=== PATIENT | male | born 1930 | race Caucasian/White ===

== ENCOUNTER 2016-04-22 13:03 | Inpatient (IN) | payer MEDICARE ==
[~2016-04-22] VITALS: Ht 177.8 cm; Wt 68.8 kg
[2016-04-22 14:45] LABS: BASO % 0.3 % (0.0-1.0); EOS # 0.1 K/mm3 (0.0-0.50); LARGE UNSTAINED CELL # 0.3 K/mm3 (0.0-0.4); LARGE UNSTAINED CELL % 2.6 % (0.0-4.0); LYMPH % 10.4 % (24.0-44.0); MEAN CORPUSCULAR HGB CONC 34.4 g/dl (32.0-36.5); MEAN CORPUSCULAR VOLUME 92.9 fl (80.0-96.0); MONO # 0.7 K/mm3 (0.0-0.8); MONO % 6.8 % (0.0-5.0); NEUTROPHILS # 7.6 K/mm3 (1.8-7.7); NEUTROPHILS % 78.9 % (36.0-66.0); PLATELET COUNT, AUTOMATED 355 k/mm3 (150-450); RED CELL DISTRIBUTION WIDTH 12.9 % (11.5-14.5); WHITE BLOOD COUNT 9.6 K/mm3 (4.0-10.0)
[2016-04-22] MEDS ORDERED: CARB25TA PO (15:08)
[2016-04-22] MEDS ORDERED: TRAV04OPD OU (15:08)
[2016-04-22] MEDS ORDERED: LISI10TA4 PO (15:08)
[2016-04-22] MEDS ORDERED: SIMV20TA2 PO (15:08)
[2016-04-22 15:11] LABS: ALBUMIN 2.9 GM/DL (3.2-5.2); ALBUMIN/GLOBULIN RATIO 0.88 (1.00-1.93); ALKALINE PHOSPHATASE 68 U/L (45-117); ALT/SGPT 21 U/L (12-78); AMYLASE 20 U/L (25-115); ANION GAP 9 MEQ/L (8-16); AST/SGOT 25 U/L (15-37); BILIRUBIN,DIRECT 0.2 MG/DL (0.0-0.2); BILIRUBIN,TOTAL 0.8 MG/DL (0.2-1.0); BLOOD UREA NITROGEN 15 MG/DL (7-18); CALCIUM LEVEL 8.5 MG/DL (8.8-10.2); CARBON DIOXIDE LEVEL 29 MEQ/L (21-32); CHLORIDE LEVEL 97 MEQ/L (98-107); CREATININE FOR GFR 0.94 MG/DL (0.70-1.30); GLOMERULAR FILTRATION RATE > 60.0 (>35); GLUCOSE, FASTING 112 MG/DL (83-110); POTASSIUM SERUM 4.2 MEQ/L (3.5-5.1); SODIUM LEVEL 135 MEQ/L (136-145); TOTAL PROTEIN 6.2 GM/DL (6.4-8.2)
--- NOTE | 2016-04-22 15:29 | REP ---
CHEST, THREE VIEWS: HISTORY: Pneumonia COMPARISON: 12/21/2015 A parenchymal density is present in the medial right lower lobe consistent with an infiltrate that is slightly increased compared to the previous study. A calcified granuloma is present in the right lower lobe. Linear density is present in the left lower lobe consistent with atelectasis or scar. The heart is normal in size. The pulmonary vasculature is normal in appearance. Degenerative change is present in the thoracic spine and shoulders. IMPRESSION: 1. Right lower lobe infiltrate increased compared to the previous study. 2. Old granulomatous disease. 3. Left lower lobe atelectasis or scar. Signed by Umer Luciano MD 04/22/2016 03:32 P
[2016-04-22] MEDS: NS 1,000 ML IV SCH (16:11)
--- NOTE | 2016-04-22 16:55 | HPE ---
DATE OF ADMISSION: 04/22/2016 PRIMARY CARE PROVIDER: Dr. Harris NEUROLOGIST: Dr. Springer REASON FOR ADMISSION: Aspiration. HISTORY OF PRESENT ILLNESS: The patient is 85-year-old male, past medical history significant for Parkinson's disease, was seeing Dr. Springer today with his daughter. His daughter mentioned that the patient has been choking with thin liquids and solid food. Has been going on for the past few weeks, but has worsened recently. He has also been having a productive cough. The patient was recently treated for aspiration pneumonia. He is currently on Levaquin 750 [address] by mouth daily[address] Dr. Springer instructed the patient and daughter to present to the emergency room and be admitted for speech evaluation and a possible percutaneous endoscopic gastrostomy tube placement. The patient was evaluated in the emergency room, vitals were stable. No leukocytosis. Chest x-ray showed left lower lobe atelectasis or scar right lower lobe atelectasis or infiltrate increasing compared to previous study. Upon my exam the patient denies any chest pain or shortness of breath. However, he was complaining of a productive cough at baseline. Denied any fevers but complained of chills. No other acute symptoms. The patient was admitted under hospitalist service. REVIEW OF SYSTEMS: 12-point review of system was obtained, all of which was negative except for those mentioned above. PAST MEDICAL HISTORY: Positive for Parkinson's disease and aspiration pneumonia. PAST SURGICAL HISTORY: Brain tumor. Gamma knife surgery. HOME MEDICATIONS: Include - Levaquin 750 mg by mouth daily - Parkinson's medication unknown dose - Hypertension medication unknown dose ALLERGIES: No known drug allergies. SOCIAL HISTORY: The patient is does not smoke or drink alcohol. FAMILY HISTORY: Noncontributory. PHYSICAL EXAMINATION: Physical findings blood pressure 148/72, pulse 66, respiratory rate 18, temperature 98.3, pulse ox 90% on room air. HEENT: Pupils equal round reactive to light accommodation. NECK: Supple. No jugular venous distention. LUNGS: Clear bilateral. ABDOMEN: Soft, nontender, nondistended. EXTREMITIES: No clubbing, cyanosis or edema. LABORATORY FINDINGS: WBC 9.6, hemoglobin 12.6, hematocrit 36.6, platelet count 355, sodium 135, potassium 4.2, chloride 97, BUN 15, creatinine 0.94, glucose 112. IMAGING: Chest x-ray showed right lower lobe infiltrate increasing compared to previous studies, which was done December 21, 2015. CT abdomen and pelvis was done in emergency room final results pending. ASSESSMENT/PLAN: 1. Aspiration pneumonia. We will start the patient on meropenem. He was on the course of Levaquin at home. We will start the patient on the pureed diet to nectar thick liquid. Order cookie swallow evaluation. Continue IV normal saline at a rate of 70 mL an hour. 2. History of Parkinson's. We will continue home medications once it is verified through the pharmacy. 3. Deep vein thrombosis prophylaxis. Sequential compression devices (SCDs) while in bed.
[2016-04-22] MEDS ORDERED: E-Z-PAQUE 96% w/w SUSP 176GM BTL As Ordered ONE (17:01)
--- NOTE | 2016-04-22 17:35 | EDDOCDS ---
Physician Documentation [facility] Name: Hal Pa Age: 85 yrs Sex: Male : 1930 Arrival Date: 04/22/2016 Time: 13:03 Bed Radiology Private MD: Darrell Elizondo D Disposition: 04/22/16 15:27 Hospitalization ordered by Prince Rodriguez for Inpatient Admission. Preliminary diagnosis are Pneumonia due to other specified bacteria - aspiration, RML, RLL, Dehydration, Dysphagia - due to progressive Parkinson's. - Bed requested for 4 [place]. - Status is Inpatient Admission. jmb - Condition is Stable. - Problem is new. - Symptoms are unchanged. Historical: - Allergies: no known allergies; - Home Meds: 1. levofloxacin 750 mg Oral tab once daily 2. parkinson's med unknown 3. hypertension med unknown - PMHx: Parkinson's Disease; - PSHx: Brain tumor gamm knife sugery; - Social history: Smoking status: Patient states was never smoker of tobacco. No barriers to communication noted, The patient speaks fluent American, The patient lives with spouse. - Family history: Not pertinent. - : The pt / caregiver states he / she is not on anticoagulants. Home medication list is obtained from the patient. - Exposure Risk Screening:: None identified. Vital Signs: 04/22 13:05 BP 148 / 72; Pulse 66; Resp 18 S; Temp 98.3(O); Pulse Ox 98% on R/A; Weight 70.31 kg / dd6 155.01 lbs (R); Height 5 ft. 10 in. (177.80 cm) (R); 17:30 BP 140 / 63; Pulse 66; Resp 18; Temp 97.5(TE); Pulse Ox 97% on R/A; Pain 0/10; dem1 13:05 Body Mass Index 22.24 (70.31 kg, 177.80 cm) dd6 MDM: 14:26 IV Saline Lock ordered. ar2 14:26 Undress patient appropriately for examination ordered. ar2 14:26 NS 0.9% 1000 ml IV at bolus once ordered. ar2 14:27 Amylase Ordered. EDMS 14:27 Basic Metabolic Profile Ordered. EDMS 14:27 CBC with Diff Ordered. EDMS 14:27 Lipase Ordered. EDMS 14:27 Liver Profile Ordered. EDMS 14:27 Chest, 2 View (pa\E\lat) Ordered. EDMS 14:28 NOTHING BY MOUTH+DIET ordered. EDMS 14:28 CT ABD & PELVIS: No Contrast Ordered. EDMS 14:28 BED REQUEST+ADM ordered. EDMS 14:39 Financial registration complete. lg 14:53 CBC with Diff Reviewed. ar2 15:05 [facility] Payment Agreement was scanned into [employer] and attached to record. lg 15:16 Amylase Reviewed. ar2 15:16 Basic Metabolic Profile Reviewed. ar2 15:16 Lipase Reviewed. ar2 15:16 Liver Profile Reviewed. ar2 16:25 Admission / Observation Status ordered. EDMS 16:25 PUREED DIET ordered. EDMS 16:26 SPUTUM CULTURE AND GRAM STAIN Ordered. EDMS 16:39 Esophagram Barium Swallow Ordered. EDMS Administered Medications: 14:50 Drug: NS 0.9% 1000 ml [sodium chloride 0.9 % intravenous solution] Route: IV; Rate: kr3 bolus; Site: left forearm; Signatures: Dispatcher [employer] EDMS Berta Cage, Reg Reg lg Staci Roa,RN RN kr3 Darrell Gallagher PA-C PA-C ar2 Shira Díaz RN RN rs3 Ronald JinRN RN Bairon Barajas, RN RN sa The chart was reviewed and I authenticate all verbal orders and agree with the evaluation and treatment provided.Corrections: (The following items were deleted from the chart) 16:58 16:24 Cookie Swallow Mod.Ba Swallow ordered. EDMS EDMS Attachments: 15:05 [facility] Payment Agreement lg MTDD
--- NOTE | 2016-04-22 17:35 | EDDOCDS ---
Nurse's Notes [facility] Name: Hal Pa Age: 85 yrs Sex: Male : 1930 Arrival Date: 04/22/2016 Time: 13:03 Bed Radiology Private MD: Darrell Elizondo D Diagnosis: Pneumonia due to other specified bacteria-aspiration, RML, RLL;Dehydration;Dysphagia-due to progressive Parkinson's Presentation: 04/22 13:13 Presenting complaint: Daughter states patient was seen by Dr. Springer today follow up rs3 on Parkinson's. Was sent here for admission since patient is not eating /difficulty swallowing. The last date and time the patient was known to be well was was at an unknown time on an unknown date. No acute neurological deficit is noted. Pre-hospital glucose is not applicable to this patient. Adult Sepsis Screening: The patient does not have new or worsening altered mentation. Patient's respiratory rate is less than 22. Systolic blood pressure is greater than 100. Patient has a qSOFA score of 0- Negative Sepsis Screen. Suicide/Homicide risk assessment- the patient denies having any suicidal and/or homicidal ideations and does not present with any other emotional, behavioral or mental health complaints. Status: Patient is not a inpatient services director or dependent. Transition of care: patient was not received from another setting of care. 13:13 Acuity: ALEJO Level 3 rs3 13:13 Method Of Arrival: Wheelchair rs3 Triage Assessment: 13:19 The onset of the patients symptoms was at an unknown time. General: Appears in no rs3 apparent distress. Pain: Denies pain. Neurological: Level of Consciousness is awake, alert, Reports difficulty swallowing. Historical: - Allergies: no known allergies; - Home Meds: 1. levofloxacin 750 mg Oral tab once daily 2. parkinson's med unknown 3. hypertension med unknown - PMHx: Parkinson's Disease; - PSHx: Brain tumor gamm knife sugery; - Social history: Smoking status: Patient states was never smoker of tobacco. No barriers to communication noted, The patient speaks fluent Icelandic, The patient lives with spouse. - Family history: Not pertinent. - : The pt / caregiver states he / she is not on anticoagulants. Home medication list is obtained from the patient. - Exposure Risk Screening:: None identified. Screenin:34 Screening information is obtained from the patient. Fall risk: No risks identified. kr3 Abuse/DV Screen: The patient / caregiver reports he/she is: not in a situation that causes fear, pain or injury. Advance Directives: Currently, there is no health care proxy. There is no active DNR order. There is no living will. There is no Power of Stamp Machine Servicer. home support is adequate. 14:50 Assistance ADL's: requires no assistance with activities of daily living. Nutritional kr3 screening: No deficits noted. Assessment: 14:14 Reassessment: Patient appears in no apparent distress at this time. General: Behavior kr3 is cooperative. Pain: Denies pain. Neurological: Level of Consciousness is awake, alert. Respiratory: Respiratory effort is even, unlabored. GI: Reports not able to swallow food or fluids easily so has not been eating or drinking. Derm: Skin is normal. 15:21 General: Appears in no apparent distress, Behavior is appropriate for age, cooperative, jmb Patient laying on stretcher, appears comfortable. Family at bedside. NO voiced complaints at this time. . Neurological: Level of Consciousness is awake, alert, obeys commands. Respiratory: Airway is patent Respiratory effort is even, unlabored, Respiratory pattern is regular, symmetrical. 17:31 General: Patient ready for transfer to [address] [place], [place] [id number]. Returned from radiology.. [facility] Neurological: Level of Consciousness is awake, alert, obeys commands. Respiratory: Airway is patent Respiratory effort is even, unlabored, Respiratory pattern is regular, symmetrical. Vital Signs: 13:05 BP 148 / 72; Pulse 66; Resp 18 S; Temp 98.3(O); Pulse Ox 98% on R/A; Weight 70.31 kg dd6 (R); Height 5 ft. 10 in. (177.80 cm) (R); 17:30 BP 140 / 63; Pulse 66; Resp 18; Temp 97.5(TE); Pulse Ox 97% on R/A; Pain 0/10; dem1 13:05 Body Mass Index 22.24 (70.31 kg, 177.80 cm) dd6 Vitals: 13:05 Log In Time: April 22, 2016 at 13:03. dd6 17:32 Glucose Measurement D-stick deferred by provider. [facility] ED Course: 13:05 Patient visited by Kirk Mcgrath CHRISTIAN. dd6 13:05 Darrell Elizondo is Private Physician. dd6 13:05 Patient moved to Waiting dd6 13:06 Patient moved to Pre RCE dd6 13:17 Triage Initiated rs3 13:43 Patient moved to Triage 1 ms2 13:48 Darrell Gallagher PA-C is PHCP. ar2 13:48 Jalen Rhodes MD is Attending Physician. ar2 13:49 Patient moved to I3 / M3 ct3 13:57 Patient visited by Darrell Gallagher PA-C. ar2 14:15 The patient / caregiver is instructed regarding the plan of care and ED course. kr3 Accompanied by Family Member, Patient has correct armband on for positive identification. Placed in gown. Bed in low position. Call light in reach. Side rails up X 1. 14:34 Amylase Sent. kr3 14:34 Basic Metabolic Profile Sent. kr3 14:34 CBC with Diff Sent. kr3 14:34 Lipase Sent. kr3 14:34 Liver Profile Sent. kr3 14:34 Inserted saline lock: 20 gauge in left forearm and blood collected. The patient kr3 tolerated the procedure well. 14:50 Patient visited by Staci Roa RN. kr3 15:05 [facility] [place] Agreement was scanned into [employer] and attached to record. lg 15:22 Patient visited by Ronald Jin,PAIGE. jmb 15:26 Prince Rodriguez is Hospitalizing Provider. ar2 15:32 Chest, 2 View (pa\E\lat) Returned. EDMS 16:48 Patient moved to Radiology jmb 17:31 No procedures done that require assistance. jmb 17:33 Patient visited by Natalia Olivo. dem1 Administered Medications: 14:50 Drug: NS 0.9% 1000 ml [sodium chloride 0.9 % intravenous solution] Route: IV; Rate: kr3 bolus; Site: left forearm; Order Results: Lab Order: Amylase; SPEC'M 04/22/16 14:32 Test: AMYLASE; Value: 20; Range: 25-115; Abnormal: Below low normal; Units: U/L; Status: F Lab Order: Basic Metabolic Profile; SPEC'M 04/22/16 14:32 Test: GLUCOSE, FASTING; Value: 112; Range: 83-110; Abnormal: Above high normal; Units: MG/DL; Status: F Test: BLOOD UREA NITROGEN; Value: 15; Range: 7-18; Units: MG/DL; Status: F Test: CREATININE FOR GFR; Value: 0.94; Range: 0.70-1.30; Units: MG/DL; Status: F Test: GLOMERULAR FILTRATION RATE; Value: > 60.0; Range: >35; Status: F Test: SODIUM LEVEL; Value: 135; Range: 136-145; Abnormal: Below low normal; Units: MEQ/L; Status: F Test: POTASSIUM SERUM; Value: 4.2; Range: 3.5-5.1; Units: MEQ/L; Status: F Test: CHLORIDE LEVEL; Value: 97; Range: 98-107; Abnormal: Below low normal; Units: MEQ/L; Status: F Test: CARBON DIOXIDE LEVEL; Value: 29; Range: 21-32; Units: MEQ/L; Status: F Test: ANION GAP; Value: 9; Range: 8-16; Units: MEQ/L; Status: F Test: CALCIUM LEVEL; Value: 8.5; Range: 8.8-10.2; Abnormal: Below low normal; Units: MG/DL; Status: F Test Note: ; Units are mL/min/1.73 m2 Chronic Kidney Disease Staging per NKF: Stage I & II GFR >=60 Normal to Mildly Decreased Stage III GFR 30-59 Moderately Decreased Stage IV GFR 15-29 Severely Decreased Stage V GFR <15 Very Little GFR Left ESRD GFR <15 on SLUNK SKINNER Lab Order: CBC with Diff; SPEC'M 04/22/16 14:32 Test: WHITE BLOOD COUNT; Value: 9.6; Range: 4.0-10.0; Units: K/mm3; Status: F Test: RED BLOOD COUNT; Value: 3.94; Range: 4.30-6.10; Abnormal: Below low normal; Units: M/mm3; Status: F Test: HEMOGLOBIN; Value: 12.6; Range: 14.0-18.0; Abnormal: Below low normal; Units: g/dl; Status: F Test: HEMATOCRIT; Value: 36.6; Range: 42.0-52.0; Abnormal: Below low normal; Units: %; Status: F Test: MEAN CORPUSCULAR VOLUME; Value: 92.9; Range: 80.0-96.0; Units: fl; Status: F Test: MEAN CORPUSCULAR HEMOGLOBIN; Value: 32.0; Range: 27.0-33.0; Units: pg; Status: F Test: MEAN CORPUSCULAR HGB CONC; Value: 34.4; Range: 32.0-36.5; Units: g/dl; Status: F Test: RED CELL DISTRIBUTION WIDTH; Value: 12.9; Range: 11.5-14.5; Units: %; Status: F Test: PLATELET COUNT, AUTOMATED; Value: 355; Range: 150-450; Units: k/mm3; Status: F Test: NEUTROPHILS %; Value: 78.9; Range: 36.0-66.0; Abnormal: Above high normal; Units: %; Status: F Test: LYMPH %; Value: 10.4; Range: 24.0-44.0; Abnormal: Below low normal; Units: %; Status: F Test: MONO %; Value: 6.8; Range: 0.0-5.0; Abnormal: Above high normal; Units: %; Status: F Test: EOS %; Value: 1.0; Range: 0.0-3.0; Units: %; Status: F Test: BASO %; Value: 0.3; Range: 0.0-1.0; Units: %; Status: F Test: LARGE UNSTAINED CELL %; Value: 2.6; Range: 0.0-4.0; Units: %; Status: F Test: NEUTROPHILS #; Value: 7.6; Range: 1.8-7.7; Units: K/mm3; Status: F Test: LYMPH #; Value: 1.0; Range: 1.5-4.5; Abnormal: Below low normal; Units: K/mm3; Status: F Test: MONO #; Value: 0.7; Range: 0.0-0.8; Units: K/mm3; Status: F Test: EOS #; Value: 0.1; Range: 0.0-0.50; Units: K/mm3; Status: F Test: BASO #; Value: 0.0; Range: 0.0-0.2; Units: K/mm3; Status: F Test: LARGE UNSTAINED CELL #; Value: 0.3; Range: 0.0-0.4; Units: K/mm3; Status: F Lab Order: Lipase; SPEC'M 04/22/16 14:32 Test: LIPASE; Value: 65; Range: 73-393; Abnormal: Below low normal; Units: U/L; Status: F Lab Order: Liver Profile; SPEC'M 04/22/16 14:32 Test: AST/SGOT; Value: 25; Range: 15-37; Units: U/L; Status: F Test: ALT/SGPT; Value: 21; Range: 12-78; Units: U/L; Status: F Test: ALKALINE PHOSPHATASE; Value: 68; Range: 45-117; Units: U/L; Status: F Test: BILIRUBIN,TOTAL; Value: 0.8; Range: 0.2-1.0; Units: MG/DL; Status: F Test: BILIRUBIN,DIRECT; Value: 0.2; Range: 0.0-0.2; Units: MG/DL; Status: F Test: TOTAL PROTEIN; Value: 6.2; Range: 6.4-8.2; Abnormal: Below low normal; Units: GM/DL; Status: F Test: ALBUMIN; Value: 2.9; Range: 3.2-5.2; Abnormal: Below low normal; Units: GM/DL; Status: F Test: ALBUMIN/GLOBULIN RATIO; Value: 0.88; Range: 1.00-1.93; Abnormal: Below low normal; Status: F Radiology Order: Chest, 2 View (pa\E\lat) Test: Chest, 2 View (pa\E\lat) REASON FOR EXAMINATION: recent pneumonia; CHEST, THREE VIEWS:; ; HISTORY: Pneumonia; ; COMPARISON: 12/21/2015; ; A parenchymal density is present in the medial right lower lobe consistent with; an infiltrate that is slightly increased compared to the previous study. A; calcified granuloma is present in the right lower lobe. Linear density is; present in the left lower lobe consistent with atelectasis or scar. The heart is; normal in size. The pulmonary vasculature is normal in appearance. Degenerative; change is present in the thoracic spine and shoulders.; ; IMPRESSION:; ; 1. Right lower lobe infiltrate increased compared to the previous study.; ; 2. Old granulomatous disease.; ; 3. Left lower lobe atelectasis or scar.; ; ; Signed by; Umer Luciano MD 04/22/2016 03:32 P; Outcome: 14:35 CT Study completed. kr3 15:27 Decision to Hospitalize by Provider. ar2 17:31 Discharge Assessment: Patient awake, alert and oriented x 3. No cognitive and/or jmb functional deficits noted. Patient verbalized understanding of disposition instructions. Patient awake and alert. obeys commands, Oriented to person, place and time. Patient verbalized understanding of disposition instructions. Patient has no functional deficits. patient administered narcotics - no. The following High Risk Discharge criteria are identified: None. Admitted to Med/Surg accompanied by tech, via wheelchair, with chart. Condition: stable. Property :Personal belongings accompany Pt. 17:34 Patient left the ED. nereyda Signatures: Dispatcher [employer] EDMS Tony Moya,RN RN ms2 Berta Cage, Reg Reg lg Staci Roa,RN RN kr3 Darrell Gallagher, PA-C PA-C ar2 Kirk Mcgrath, GIANT TIRE REPAIRER GIANT TIRE REPAIRER dd6 Shira DíazRN RN rs3 Neisha Morales, GIANT TIRE REPAIRER GIANT TIRE REPAIRER ct3 Natalia Olivo dem1 Ronald JinRN PAIGE dawn MTDD
[2016-04-22 17:39] VITALS: BP 161/69
[2016-04-22 18:00] VITALS: BP_SYST 161
[2016-04-22] MEDS: MEROPENEM INJ 1 GM in D5W MINI-BAG PLUS 100 ML IV SCH (18:39)
--- NOTE | 2016-04-22 19:18 | REP ---
Esophagram: Single contrast study: History: Evaluate for aspiration. Swallowing difficulty. 1 minute 40 seconds of fluoroscopy time was utilized. Findings: The oral pharyngeal phase of barium swallow is recorded on frontal and lateral rapid sequence films. Repetitive laryngeal penetration was observed and there were 2 to 3 episodes of tracheal aspiration producing clearing of the throat. Barium is seen coursing down the trachea to the right mainstem bronchus. No evidence of laryngeal or hypopharyngeal mass lesion is seen. There are tertiary esophageal contractions. No esophageal mass lesion is seen. Impression: Repeated laryngeal penetration and several episodes of tracheal aspiration productive of mild coughing and throat clearing. Signed by Jordan Montgomery MD 04/23/2016 09:53 A
[2016-04-22] MEDS: metroNIDAZOLE 500 MG in APPROPRIATE DILUENT 1 EA IV SCH (20:17)
[2016-04-22 22:00] VITALS: BP 129/68
[2016-04-23] MEDS: MEROPENEM INJ 1 GM in D5W MINI-BAG PLUS 100 ML IV SCH ×3 (01:48→17:58)
[2016-04-23] MEDS: metroNIDAZOLE 500 MG in APPROPRIATE DILUENT 1 EA IV SCH ×2 (04:52→13:00)
[2016-04-23 06:00] VITALS: BP 153/68
[2016-04-23] MEDS: NS 1,000 ML IV SCH ×2 (06:29→21:35)
[2016-04-23 07:56] LABS: BASO % 0.3 % (0.0-1.0); EOS # 0.1 K/mm3 (0.0-0.50); EOS % 0.9 % (0.0-3.0); LARGE UNSTAINED CELL # 0.2 K/mm3 (0.0-0.4); LARGE UNSTAINED CELL % 2.5 % (0.0-4.0); LYMPH # 1.1 K/mm3 (1.5-4.5); LYMPH % 13.4 % (24.0-44.0); MEAN CORPUSCULAR HEMOGLOBIN 31.4 pg (27.0-33.0); MEAN CORPUSCULAR HGB CONC 33.5 g/dl (32.0-36.5); MEAN CORPUSCULAR VOLUME 93.8 fl (80.0-96.0); MONO # 0.6 K/mm3 (0.0-0.8); MONO % 7.3 % (0.0-5.0); NEUTROPHILS # 6.1 K/mm3 (1.8-7.7); NEUTROPHILS % 75.5 % (36.0-66.0); PLATELET COUNT, AUTOMATED 344 k/mm3 (150-450); WHITE BLOOD COUNT 8.1 K/mm3 (4.0-10.0)
[2016-04-23 08:23] LABS: ALBUMIN 2.6 GM/DL (3.2-5.2); ALBUMIN/GLOBULIN RATIO 0.84 (1.00-1.93); ALKALINE PHOSPHATASE 61 U/L (45-117); ALT/SGPT 21 U/L (12-78); ANION GAP 7 MEQ/L (8-16); AST/SGOT 25 U/L (15-37); BILIRUBIN,TOTAL 0.6 MG/DL (0.2-1.0); BLOOD UREA NITROGEN 13 MG/DL (7-18); CARBON DIOXIDE LEVEL 30 MEQ/L (21-32); CHLORIDE LEVEL 100 MEQ/L (98-107); CREATININE FOR GFR 0.78 MG/DL (0.70-1.30); GLOMERULAR FILTRATION RATE > 60.0 (>35); GLUCOSE, FASTING 112 MG/DL (83-110); MAGNESIUM LEVEL 2.1 MG/DL (1.8-2.4); PHOSPHORUS LEVEL 2.7 MG/DL (2.5-4.9); POTASSIUM SERUM 4.1 MEQ/L (3.5-5.1); SODIUM LEVEL 137 MEQ/L (136-145); TOTAL PROTEIN 5.7 GM/DL (6.4-8.2)
[2016-04-23 11:34] VITALS: BP 134/63
[2016-04-23 14:00] VITALS: BP 132/64
[2016-04-23] MEDS: LISINOPRIL 10 MG TAB PO SCH (15:19)
[2016-04-23] MEDS: SINEMET 25-100 MG TAB PO SCH ×2 (15:19→21:33)
--- NOTE | 2016-04-23 15:23 | IPNPDOC ---
Text Note Date of Service The patient was seen on 04/23/16 at 15:04. NOTE Subjective: Patient is a 85 year old male with a PMHx of Parkinson's disease and history of aspiration pneumonia who presented to the ED from Dr. Springer's office. Patient and his noted that he had aspirated on food while eating ( solids and liquids). he has recently been treated for aspiration pneumonia and has been started on Levaquin. Patient was seen and examined at the bedside. He notes that he is tolerating a pureed thick diet. Objective: Vitals (See below) General: Lying in bed no acute distress, comfortable, AAOx3 HEENT: NC, AT CVS: RRR, +S1S2 Lungs: Fair air entry b/l, -w/r/r Abdomen: Soft, ND, NT, +BSx4 Extremities: +PPx4, -edema, - calf tenderness Assessment and plan: 1. Aspiration pneumonia - coverage for gram negative and aerobes - likely 2/2 poor swallowing ability 2/2 Parkinson's disease - Presented with cough, recent outpatient treatment with Levaquin - CXR 04/22: R LL infiltrate - No leukocytosis, no fever - c/w IV fluids with NS at 70cc/hr - c/w Meropenem - Day #2 2. Parkinson's with Dysphagia - Esophogram reveals some aspiration, some clearing ability - Will get official swallow study on Monday - Will c/w nectar thick fluids and pureed diet - c/w Cinemet 3. HTN - BP well controlled - c/w Lisinopril with holding parameters 4. DLP - c/w simvastatin 5. DVT prophylaxis - c/w SCDs VS,Fishbone, I+O VS, Fishbone, I+O Laboratory Tests 04/23/16 07:39 Calcium Level 8.0 L, Phosphorus Level 2.7, Aspartate Amino Transf (AST/SGOT) 25 , Alanine Aminotransferase (ALT/SGPT) 21, Alkaline Phosphatase 61, Total Bilirubin 0.6, Total Protein 5.7 L, Albumin 2.6 L, Red Blood Count 3.89 L, Mean Corpuscular Volume 93.8, Mean Corpuscular Hemoglobin 31.4, Mean Corpuscular Hemoglobin Concent 33.5, Red Cell Distribution Width 13.0, Neutrophils (%) (Auto ) 75.5 H, Lymphocytes (%) (Auto) 13.4 L, Monocytes (%) (Auto) 7.3 H, Eosinophils (%) (Auto) 0.9, Basophils (%) (Auto) 0.3, Neutrophils # (Auto) 6.1, Lymphocytes # (Auto) 1.1 L, Monocytes # (Auto) 0.6, Eosinophils # (Auto) 0.1, Basophils # (Auto) 0.0 Vital Signs Date Time Temp Pulse Resp B/P Pulse Ox O2 Delivery O2 Flow Rate FiO2 04/23/16 14:00 98.7 58 19 132/64 99 Room Air I&O- Last 24 Hours up to 6 AM 04/23/16 06:00 Intake Total 360 ml Output Total 200 ml Balance 160 ml AUREA AGARWAL MD Apr 23, 2016 15:23
[2016-04-23] MEDS: SIMVASTATIN 20 MG TAB PO SCH (21:33)
[2016-04-23] MEDS: LATANOPROST 0.005% OPHTH SOLN 2.5 ML OU SCH (21:34)
--- NOTE | 2016-04-23 21:59 | REP ---
CT of the abdomen and pelvis without contrast 04/22/2016 Indication: Abdominal pain Comparison: CT pelvis only 09/19/2011 Findings: Cardiac silhouette is mild to moderately enlarged. There is minimal pericardial effusion of 7 mm maximal depth. There are patchy areas of consolidation most compatible with infiltrate within the right middle lobe and the posterior basilar segment right lower lobe. This could represent aspiration pneumonia, and less likely likely infiltrative mass. Moderate coronary artery calcifications. Liver is within normal limits. There are multiple calcified granulomata within the spleen. Pancreas is mildly atrophic. There has been a prior cholecystectomy. Adrenal glands are normal. There is a moderately atrophic left kidney with areas of cortical thinning/scarring. There is no hydronephrosis or obstructing ureteral calculus. There is a 16 mm cyst within the posterior lateral mid pole right kidney. Right kidney is also without hydronephrosis or obstructing ureteral calculus. The stomach and small bowel are within normal limits. Terminal ileum and appendix are unchanged without inflammation. Moderate atherosclerotic changes are noted in the aorta and iliac arteries Bladder is contracted. The prostate contains implants most compatible with prostate cancer. There is moderate diffuse retained colonic stool. There is no free air or ascites. Impression: 1. Mild to moderate cardiomegaly with small amount of pericardial effusion of 7 mm maximal depth 2. Patchy areas of consolidation within the right middle lobe and medial basilar segment right lower lobe. Differential diagnosis includes aspiration pneumonia, scarring, infiltrative mass. Recommend dedicated CT of the chest 3. Moderate atrophic changes within the left kidney.There is no hydronephrosis or obstructing ureteral calculi bilaterally 4. Moderate diffuse retained colonic stool 5. Prostatic seed implants consistent with history of prostate cancer. Prostate is not significantly enlarged Signed by Shaina Fernandez MD 04/23/2016 09:50 P
[2016-04-23 22:00] VITALS: BP 156/70
[2016-04-24] MEDS: MEROPENEM INJ 1 GM in D5W MINI-BAG PLUS 100 ML IV SCH ×3 (01:37→18:45)
[2016-04-24 05:53] LABS: BASO % 0.4 % (0.0-1.0); EOS # 0.2 K/mm3 (0.0-0.50); EOS % 2.4 % (0.0-3.0); LARGE UNSTAINED CELL # 0.1 K/mm3 (0.0-0.4); LARGE UNSTAINED CELL % 2.1 % (0.0-4.0); LYMPH % 13.7 % (24.0-44.0); MEAN CORPUSCULAR HEMOGLOBIN 32.3 pg (27.0-33.0); MEAN CORPUSCULAR HGB CONC 33.3 g/dl (32.0-36.5); MEAN CORPUSCULAR VOLUME 96.9 fl (80.0-96.0); MONO # 0.5 K/mm3 (0.0-0.8); MONO % 7.3 % (0.0-5.0); NEUTROPHILS # 4.8 K/mm3 (1.8-7.7); NEUTROPHILS % 74.1 % (36.0-66.0); PLATELET COUNT, AUTOMATED 329 k/mm3 (150-450); RED CELL DISTRIBUTION WIDTH 13.8 % (11.5-14.5); WHITE BLOOD COUNT 6.5 K/mm3 (4.0-10.0)
[2016-04-24 06:00] VITALS: BP 138/63
[2016-04-24 06:11] LABS: ALBUMIN 2.1 GM/DL (3.2-5.2); ALKALINE PHOSPHATASE 55 U/L (45-117); ALT/SGPT 8 U/L (12-78); ANION GAP 6 MEQ/L (8-16); AST/SGOT 22 U/L (15-37); BILIRUBIN,TOTAL 0.5 MG/DL (0.2-1.0); BLOOD UREA NITROGEN 11 MG/DL (7-18); CALCIUM LEVEL 7.7 MG/DL (8.8-10.2); CARBON DIOXIDE LEVEL 28 MEQ/L (21-32); CHLORIDE LEVEL 102 MEQ/L (98-107); CREATININE FOR GFR 0.67 MG/DL (0.70-1.30); GLOMERULAR FILTRATION RATE > 60.0 (>35); GLUCOSE, FASTING 97 MG/DL (83-110); MAGNESIUM LEVEL 1.9 MG/DL (1.8-2.4); POTASSIUM SERUM 3.9 MEQ/L (3.5-5.1); SODIUM LEVEL 136 MEQ/L (136-145); TOTAL PROTEIN 5.6 GM/DL (6.4-8.2)
[2016-04-24] MEDS ORDERED: PREVNAR 13 VACCINE SYRINGE (CPT CODE:90670) IM ONE (09:00)
[2016-04-24] MEDS: LISINOPRIL 10 MG TAB PO SCH (09:00)
[2016-04-24] MEDS: SINEMET 25-100 MG TAB PO SCH ×3 (09:03→20:27)
--- NOTE | 2016-04-24 13:24 | IPNPDOC ---
Text Note Date of Service The patient was seen on 04/24/16 at 13:21. NOTE Subjective: Patient is a 85 year old male with a PMHx of Parkinson's disease and history of aspiration pneumonia who presented to the ED from Dr. Springer's office. Patient and his noted that he had aspirated on food while eating ( solids and liquids). he has recently been treated for aspiration pneumonia and has been started on Levaquin. Patient was seen and examined at the bedside. He does not have any new problems today. Objective: Vitals (See below) General: Lying in bed no acute distress, comfortable, AAOx3 HEENT: NC, AT CVS: RRR, +S1S2 Lungs: Fair air entry b/l, -w/r/r Abdomen: Soft, ND, NT, +BSx4 Extremities: +PPx4, -edema, - calf tenderness Assessment and plan: 1. Aspiration pneumonia - coverage for gram negative and aerobes - likely 2/2 poor swallowing ability 2/2 Parkinson's disease - Presented with cough, recent outpatient treatment with Levaquin - CXR 04/22: R LL infiltrate - No leukocytosis, no fever - Will d/c IV fluids today - c/w Meropenem - Day #3 2. Parkinson's with Dysphagia - Esophagram reveals laryngeal penetration and several episodes of tracheal aspiration, productive of mild coughing and throat clearing - Will get official swallow study tomorrow 04/25 - c/w nectar thick fluids and pureed diet - c/w Cinemet 3. HTN - BP well controlled - c/w Lisinopril with holding parameters 4. DLP - c/w simvastatin 5. DVT prophylaxis - c/w SCDs VS,Fishbone, I+O VS, Fishbone, I+O Laboratory Tests 04/24/16 05:30 Calcium Level 7.7 L, Aspartate Amino Transf (AST/SGOT) 22, Alanine Aminotransferase (ALT/SGPT) 8 L, Alkaline Phosphatase 55, Total Bilirubin 0.5, Total Protein 5.6 L, Albumin 2.1 L, Red Blood Count 3.67 L, Mean Corpuscular Volume 96.9 H, Mean Corpuscular Hemoglobin 32.3, Mean Corpuscular Hemoglobin Concent 33.3, Red Cell Distribution Width 13.8, Neutrophils (%) (Auto) 74.1 H, Lymphocytes (%) (Auto) 13.7 L, Monocytes (%) (Auto) 7.3 H, Eosinophils (%) (Auto ) 2.4, Basophils (%) (Auto) 0.4, Neutrophils # (Auto) 4.8, Lymphocytes # (Auto) 1.0 L, Monocytes # (Auto) 0.5, Eosinophils # (Auto) 0.2, Basophils # (Auto) 0.0 Vital Signs Date Time Temp Pulse Resp B/P Pulse Ox O2 Delivery O2 Flow Rate FiO2 04/24/16 09:13 Room Air 04/24/16 09:00 107/59 04/24/16 06:00 97.7 61 18 97 I&O- Last 24 Hours up to 6 AM 04/24/16 06:00 Intake Total 3300 ml Output Total 200 ml Balance 3100 ml AUREA AGARWAL MD Apr 24, 2016 13:24
[2016-04-24 14:00] VITALS: BP 155/70
--- NOTE | 2016-04-24 18:35 | EDDOCDS ---
Physician Documentation [facility] Name: Hal Pa Age: 85 yrs Sex: Male : 1930 Arrival Date: 04/22/2016 Time: 13:03 Bed Radiology Private MD: Darrell Elizondo D Disposition: 04/22/16 15:27 Hospitalization ordered by Prince Rodriguez for Inpatient Admission. Preliminary diagnosis are Pneumonia due to other specified bacteria - aspiration, RML, RLL, Dehydration, Dysphagia - due to progressive Parkinson's. - Bed requested for 4 [place]. - Status is Inpatient Admission. jmb - Condition is Stable. - Problem is new. - Symptoms are unchanged. Historical: - Allergies: no known allergies; - Home Meds: 1. levofloxacin 750 mg Oral tab once daily 2. parkinson's med unknown 3. hypertension med unknown - PMHx: Parkinson's Disease; - PSHx: Brain tumor gamm knife sugery; - Social history: Smoking status: Patient states was never smoker of tobacco. No barriers to communication noted, The patient speaks fluent Guatemalan, The patient lives with spouse. - Family history: Not pertinent. - : The pt / caregiver states he / she is not on anticoagulants. Home medication list is obtained from the patient. - Exposure Risk Screening:: None identified. Vital Signs: 04/22 13:05 BP 148 / 72; Pulse 66; Resp 18 S; Temp 98.3(O); Pulse Ox 98% on R/A; Weight 70.31 kg / dd6 155.01 lbs (R); Height 5 ft. 10 in. (177.80 cm) (R); 17:30 BP 140 / 63; Pulse 66; Resp 18; Temp 97.5(TE); Pulse Ox 97% on R/A; Pain 0/10; dem1 13:05 Body Mass Index 22.24 (70.31 kg, 177.80 cm) dd6 MDM: 14:26 IV Saline Lock ordered. ar2 14:26 Undress patient appropriately for examination ordered. ar2 14:26 NS 0.9% 1000 ml IV at bolus once ordered. ar2 14:27 Amylase Ordered. EDMS 14:27 Basic Metabolic Profile Ordered. EDMS 14:27 CBC with Diff Ordered. EDMS 14:27 Lipase Ordered. EDMS 14:27 Liver Profile Ordered. EDMS 14:27 Chest, 2 View (pa\E\lat) Ordered. EDMS 14:28 NOTHING BY MOUTH+DIET ordered. EDMS 14:28 CT ABD & PELVIS: No Contrast Ordered. EDMS 14:28 BED REQUEST+ADM ordered. EDMS 14:39 Financial registration complete. lg 14:53 CBC with Diff Reviewed. ar2 15:05 [facility] Payment Agreement was scanned into [employer] and attached to record. lg 15:16 Amylase Reviewed. ar2 15:16 Basic Metabolic Profile Reviewed. ar2 15:16 Lipase Reviewed. ar2 15:16 Liver Profile Reviewed. ar2 16:25 Admission / Observation Status ordered. EDMS 16:25 PUREED DIET ordered. EDMS 16:26 SPUTUM CULTURE AND GRAM STAIN Ordered. EDMS 16:39 Esophagram Barium Swallow Ordered. EDMS 04/23 10:38 T-Sheet-- Draft Copy was scanned into [employer] and attached to record. gb 10:39 Radiology Report was scanned into [employer] and attached to record. gb Administered Medications: 04/22 14:50 Drug: NS 0.9% 1000 ml [sodium chloride 0.9 % intravenous solution] Route: IV; Rate: kr3 bolus; Site: left forearm; Signatures: Dispatcher [employer] EDMS Debbie Crockett, Reg Reg gb Berta Cage, Reg Reg lg Staci Roa,RN RN kr3 Darrell Gallagher PA-C PASofía ar2 Shira Díaz RN RN rs3 Ronald Jin RN RN jmb Andrews, Steven RN PAIGE sa The chart was reviewed and I authenticate all verbal orders and agree with the evaluation and treatment provided.Corrections: (The following items were deleted from the chart) 16:58 16:24 Cookie Swallow Mod.Ba Swallow ordered. EDMS EDMS Attachments: 15:05 [facility] Payment Agreement lg 04/23 10:38 T-Sheet-- Draft Copy gb Chart Complete MTDD
--- NOTE | 2016-04-24 18:35 | EDDOCDS ---
Nurse's Notes [facility] Name: Hal Pa Age: 85 yrs Sex: Male : 1930 Arrival Date: 04/22/2016 Time: 13:03 Bed Radiology Private MD: Darrell Elizondo D Diagnosis: Pneumonia due to other specified bacteria-aspiration, RML, RLL;Dehydration;Dysphagia-due to progressive Parkinson's Presentation: 04/22 13:13 Presenting complaint: Daughter states patient was seen by Dr. Springer today follow up rs3 on Parkinson's. Was sent here for admission since patient is not eating /difficulty swallowing. The last date and time the patient was known to be well was was at an unknown time on an unknown date. No acute neurological deficit is noted. Pre-hospital glucose is not applicable to this patient. Adult Sepsis Screening: The patient does not have new or worsening altered mentation. Patient's respiratory rate is less than 22. Systolic blood pressure is greater than 100. Patient has a qSOFA score of 0- Negative Sepsis Screen. Suicide/Homicide risk assessment- the patient denies having any suicidal and/or homicidal ideations and does not present with any other emotional, behavioral or mental health complaints. Status: Patient is not a visitor services specialist or dependent. Transition of care: patient was not received from another setting of care. 13:13 Acuity: ALEJO Level 3 rs3 13:13 Method Of Arrival: Wheelchair rs3 Triage Assessment: 13:19 The onset of the patients symptoms was at an unknown time. General: Appears in no rs3 apparent distress. Pain: Denies pain. Neurological: Level of Consciousness is awake, alert, Reports difficulty swallowing. Historical: - Allergies: no known allergies; - Home Meds: 1. levofloxacin 750 mg Oral tab once daily 2. parkinson's med unknown 3. hypertension med unknown - PMHx: Parkinson's Disease; - PSHx: Brain tumor gamm knife sugery; - Social history: Smoking status: Patient states was never smoker of tobacco. No barriers to communication noted, The patient speaks fluent Tajik, The patient lives with spouse. - Family history: Not pertinent. - : The pt / caregiver states he / she is not on anticoagulants. Home medication list is obtained from the patient. - Exposure Risk Screening:: None identified. Screenin:34 Screening information is obtained from the patient. Fall risk: No risks identified. kr3 Abuse/DV Screen: The patient / caregiver reports he/she is: not in a situation that causes fear, pain or injury. Advance Directives: Currently, there is no health care proxy. There is no active DNR order. There is no living will. There is no Power of Directory Carrier. home support is adequate. 14:50 Assistance ADL's: requires no assistance with activities of daily living. Nutritional kr3 screening: No deficits noted. Assessment: 14:14 Reassessment: Patient appears in no apparent distress at this time. General: Behavior kr3 is cooperative. Pain: Denies pain. Neurological: Level of Consciousness is awake, alert. Respiratory: Respiratory effort is even, unlabored. GI: Reports not able to swallow food or fluids easily so has not been eating or drinking. Derm: Skin is normal. 15:21 General: Appears in no apparent distress, Behavior is appropriate for age, cooperative, jmb Patient laying on stretcher, appears comfortable. Family at bedside. NO voiced complaints at this time. . Neurological: Level of Consciousness is awake, alert, obeys commands. Respiratory: Airway is patent Respiratory effort is even, unlabored, Respiratory pattern is regular, symmetrical. 17:31 General: Patient ready for transfer to [address] [place] [address]on. Returned from radiology.. [facility] Neurological: Level of Consciousness is awake, alert, obeys commands. Respiratory: Airway is patent Respiratory effort is even, unlabored, Respiratory pattern is regular, symmetrical. Vital Signs: 13:05 BP 148 / 72; Pulse 66; Resp 18 S; Temp 98.3(O); Pulse Ox 98% on R/A; Weight 70.31 kg dd6 (R); Height 5 ft. 10 in. (177.80 cm) (R); 17:30 BP 140 / 63; Pulse 66; Resp 18; Temp 97.5(TE); Pulse Ox 97% on R/A; Pain 0/10; dem1 13:05 Body Mass Index 22.24 (70.31 kg, 177.80 cm) dd6 Vitals: 13:05 Log In Time: April 22, 2016 at 13:03. dd6 17:32 Glucose Measurement D-stick deferred by provider. [facility] ED Course: 13:05 Patient visited by Kirk Mcgrath CHRISTIAN. dd6 13:05 Darrell Elizondo is Private Physician. dd6 13:05 Patient moved to Waiting dd6 13:06 Patient moved to Pre RCE dd6 13:17 Triage Initiated rs3 13:43 Patient moved to Triage 1 ms2 13:48 [facility]agher [facility]. ar2 13:48 Jalen Rhodes MD is Attending Physician. ar2 13:49 Patient moved to I3 / M3 ct3 13:57 Patient visited by Darrell Gallagher PA-C. ar2 14:15 The patient / caregiver is instructed regarding the plan of care and ED course. kr3 Accompanied by Family Member, Patient has correct armband on for positive identification. Placed in gown. Bed in low position. Call light in reach. Side rails up X 1. 14:34 Amylase Sent. kr3 14:34 Basic Metabolic Profile Sent. kr3 14:34 CBC with Diff Sent. kr3 14:34 Lipase Sent. kr3 14:34 Liver Profile Sent. kr3 14:34 Inserted saline lock: 20 gauge in left forearm and blood collected. The patient kr3 tolerated the procedure well. 14:50 Patient visited by Staci Roa,PAIGE. kr3 15:05 [facility] [place] Agreement was scanned into [employer] and attached to record. lg 15:22 Patient visited by Ronald Jin,PAIGE. jmb 15:26 Prince Rodriguez is Hospitalizing Provider. ar2 15:32 Chest, 2 View (pa\E\lat) Returned. EDMS 16:48 Patient moved to Radiology jmb 17:31 No procedures done that require assistance. jmb 17:33 Patient visited by Natalia Olivo. dem1 04/23 10:38 T-Sheet-- Draft Copy was scanned into [employer] and attached to record. gb 10:39 Radiology Report was scanned into [employer] and attached to record. gb Administered Medications: 04/22 14:50 Drug: NS 0.9% 1000 ml [sodium chloride 0.9 % intravenous solution] Route: IV; Rate: kr3 bolus; Site: left forearm; Order Results: Lab Order: Amylase; SPEC'M 04/22/16 14:32 Test: AMYLASE; Value: 20; Range: 25-115; Abnormal: Below low normal; Units: U/L; Status: F Lab Order: Basic Metabolic Profile; SPEC'M 04/22/16 14:32 Test: GLUCOSE, FASTING; Value: 112; Range: 83-110; Abnormal: Above high normal; Units: MG/DL; Status: F Test: BLOOD UREA NITROGEN; Value: 15; Range: 7-18; Units: MG/DL; Status: F Test: CREATININE FOR GFR; Value: 0.94; Range: 0.70-1.30; Units: MG/DL; Status: F Test: GLOMERULAR FILTRATION RATE; Value: > 60.0; Range: >35; Status: F Test: SODIUM LEVEL; Value: 135; Range: 136-145; Abnormal: Below low normal; Units: MEQ/L; Status: F Test: POTASSIUM SERUM; Value: 4.2; Range: 3.5-5.1; Units: MEQ/L; Status: F Test: CHLORIDE LEVEL; Value: 97; Range: 98-107; Abnormal: Below low normal; Units: MEQ/L; Status: F Test: CARBON DIOXIDE LEVEL; Value: 29; Range: 21-32; Units: MEQ/L; Status: F Test: ANION GAP; Value: 9; Range: 8-16; Units: MEQ/L; Status: F Test: CALCIUM LEVEL; Value: 8.5; Range: 8.8-10.2; Abnormal: Below low normal; Units: MG/DL; Status: F Test Note: ; Units are mL/min/1.73 m2 Chronic Kidney Disease Staging per NKF: Stage I & II GFR >=60 Normal to Mildly Decreased Stage III GFR 30-59 Moderately Decreased Stage IV GFR 15-29 Severely Decreased Stage V GFR <15 Very Little GFR Left ESRD GFR <15 on [employer] Lab Order: CBC with Diff; SPEC'M 04/22/16 14:32 Test: WHITE BLOOD COUNT; Value: 9.6; Range: 4.0-10.0; Units: K/mm3; Status: F Test: RED BLOOD COUNT; Value: 3.94; Range: 4.30-6.10; Abnormal: Below low normal; Units: M/mm3; Status: F Test: HEMOGLOBIN; Value: 12.6; Range: 14.0-18.0; Abnormal: Below low normal; Units: g/dl; Status: F Test: HEMATOCRIT; Value: 36.6; Range: 42.0-52.0; Abnormal: Below low normal; Units: %; Status: F Test: MEAN CORPUSCULAR VOLUME; Value: 92.9; Range: 80.0-96.0; Units: fl; Status: F Test: MEAN CORPUSCULAR HEMOGLOBIN; Value: 32.0; Range: 27.0-33.0; Units: pg; Status: F Test: MEAN CORPUSCULAR HGB CONC; Value: 34.4; Range: 32.0-36.5; Units: g/dl; Status: F Test: RED CELL DISTRIBUTION WIDTH; Value: 12.9; Range: 11.5-14.5; Units: %; Status: F Test: PLATELET COUNT, AUTOMATED; Value: 355; Range: 150-450; Units: k/mm3; Status: F Test: NEUTROPHILS %; Value: 78.9; Range: 36.0-66.0; Abnormal: Above high normal; Units: %; Status: F Test: LYMPH %; Value: 10.4; Range: 24.0-44.0; Abnormal: Below low normal; Units: %; Status: F Test: MONO %; Value: 6.8; Range: 0.0-5.0; Abnormal: Above high normal; Units: %; Status: F Test: EOS %; Value: 1.0; Range: 0.0-3.0; Units: %; Status: F Test: BASO %; Value: 0.3; Range: 0.0-1.0; Units: %; Status: F Test: LARGE UNSTAINED CELL %; Value: 2.6; Range: 0.0-4.0; Units: %; Status: F Test: NEUTROPHILS #; Value: 7.6; Range: 1.8-7.7; Units: K/mm3; Status: F Test: LYMPH #; Value: 1.0; Range: 1.5-4.5; Abnormal: Below low normal; Units: K/mm3; Status: F Test: MONO #; Value: 0.7; Range: 0.0-0.8; Units: K/mm3; Status: F Test: EOS #; Value: 0.1; Range: 0.0-0.50; Units: K/mm3; Status: F Test: BASO #; Value: 0.0; Range: 0.0-0.2; Units: K/mm3; Status: F Test: LARGE UNSTAINED CELL #; Value: 0.3; Range: 0.0-0.4; Units: K/mm3; Status: F Lab Order: Lipase; SPEC'M 04/22/16 14:32 Test: LIPASE; Value: 65; Range: 73-393; Abnormal: Below low normal; Units: U/L; Status: F Lab Order: Liver Profile; SPEC'M 04/22/16 14:32 Test: AST/SGOT; Value: 25; Range: 15-37; Units: U/L; Status: F Test: ALT/SGPT; Value: 21; Range: 12-78; Units: U/L; Status: F Test: ALKALINE PHOSPHATASE; Value: 68; Range: 45-117; Units: U/L; Status: F Test: BILIRUBIN,TOTAL; Value: 0.8; Range: 0.2-1.0; Units: MG/DL; Status: F Test: BILIRUBIN,DIRECT; Value: 0.2; Range: 0.0-0.2; Units: MG/DL; Status: F Test: TOTAL PROTEIN; Value: 6.2; Range: 6.4-8.2; Abnormal: Below low normal; Units: GM/DL; Status: F Test: ALBUMIN; Value: 2.9; Range: 3.2-5.2; Abnormal: Below low normal; Units: GM/DL; Status: F Test: ALBUMIN/GLOBULIN RATIO; Value: 0.88; Range: 1.00-1.93; Abnormal: Below low normal; Status: F Radiology Order: Chest, 2 View (pa\E\lat) Test: Chest, 2 View (pa\E\lat) REASON FOR EXAMINATION: recent pneumonia; CHEST, THREE VIEWS:; ; HISTORY: Pneumonia; ; COMPARISON: 12/21/2015; ; A parenchymal density is present in the medial right lower lobe consistent with; an infiltrate that is slightly increased compared to the previous study. A; calcified granuloma is present in the right lower lobe. Linear density is; present in the left lower lobe consistent with atelectasis or scar. The heart is; normal in size. The pulmonary vasculature is normal in appearance. Degenerative; change is present in the thoracic spine and shoulders.; ; IMPRESSION:; ; 1. Right lower lobe infiltrate increased compared to the previous study.; ; 2. Old granulomatous disease.; ; 3. Left lower lobe atelectasis or scar.; ; ; Signed by; Umer Luciano MD 04/22/2016 03:32 P; Outcome: 14:35 CT Study completed. kr3 15:27 Decision to Hospitalize by Provider. ar2 17:31 Discharge Assessment: Patient awake, alert and oriented x 3. No cognitive and/or jmb functional deficits noted. Patient verbalized understanding of disposition instructions. Patient awake and alert. obeys commands, Oriented to person, place and time. Patient verbalized understanding of disposition instructions. Patient has no functional deficits. patient administered narcotics - no. The following High Risk Discharge criteria are identified: None. Admitted to Med/Surg accompanied by tech, via wheelchair, with chart. Condition: stable. Property :Personal belongings accompany Pt. 17:34 Patient left the ED. nereyda Signatures: Dispatcher [employer] EDMS Tony Moya,RN RN ms2 Debbie rCockett, Reg Reg gb Berta Cage, Reg Reg lg Staci Roa,RN RN kr3 Darrell Gallagher, PA-Neno PA-C ar2 Kirk Mcgrath, TECHNICAL SUPPORT ASSISTANT TECHNICAL SUPPORT ASSISTANT dd6 Shira Díaz,RN RN rs3 Neisha Morales, TECHNICAL SUPPORT ASSISTANT TECHNICAL SUPPORT ASSISTANT ct3 Natalia Olivo dem1 Ronald Jin,RN PAIGE dawn Chart Complete MTDD
--- NOTE | 2016-04-24 18:35 | EDDOCDS ---
Physician Documentation [facility] Name: Hal Pa Age: 85 yrs Sex: Male : 1930 Arrival Date: 04/22/2016 Time: 13:03 Bed Radiology Private MD: Darrell Elizondo D Disposition: 04/22/16 15:27 Hospitalization ordered by Prince Rodriguez for Inpatient Admission. Preliminary diagnosis are Pneumonia due to other specified bacteria - aspiration, RML, RLL, Dehydration, Dysphagia - due to progressive Parkinson's. - Bed requested for 4 [place]. - Status is Inpatient Admission. jmb - Condition is Stable. - Problem is new. - Symptoms are unchanged. Historical: - Allergies: no known allergies; - Home Meds: 1. levofloxacin 750 mg Oral tab once daily 2. parkinson's med unknown 3. hypertension med unknown - PMHx: Parkinson's Disease; - PSHx: Brain tumor gamm knife sugery; - Social history: Smoking status: Patient states was never smoker of tobacco. No barriers to communication noted, The patient speaks fluent Somali, The patient lives with spouse. - Family history: Not pertinent. - : The pt / caregiver states he / she is not on anticoagulants. Home medication list is obtained from the patient. - Exposure Risk Screening:: None identified. Vital Signs: 04/22 13:05 BP 148 / 72; Pulse 66; Resp 18 S; Temp 98.3(O); Pulse Ox 98% on R/A; Weight 70.31 kg / dd6 155.01 lbs (R); Height 5 ft. 10 in. (177.80 cm) (R); 17:30 BP 140 / 63; Pulse 66; Resp 18; Temp 97.5(TE); Pulse Ox 97% on R/A; Pain 0/10; dem1 13:05 Body Mass Index 22.24 (70.31 kg, 177.80 cm) dd6 MDM: 14:26 IV Saline Lock ordered. ar2 14:26 Undress patient appropriately for examination ordered. ar2 14:26 NS 0.9% 1000 ml IV at bolus once ordered. ar2 14:27 Amylase Ordered. EDMS 14:27 Basic Metabolic Profile Ordered. EDMS 14:27 CBC with Diff Ordered. EDMS 14:27 Lipase Ordered. EDMS 14:27 Liver Profile Ordered. EDMS 14:27 Chest, 2 View (pa\E\lat) Ordered. EDMS 14:28 NOTHING BY MOUTH+DIET ordered. EDMS 14:28 CT ABD & PELVIS: No Contrast Ordered. EDMS 14:28 BED REQUEST+ADM ordered. EDMS 14:39 Financial registration complete. lg 14:53 CBC with Diff Reviewed. ar2 15:05 [facility] Payment Agreement was scanned into [employer] and attached to record. lg 15:16 Amylase Reviewed. ar2 15:16 Basic Metabolic Profile Reviewed. ar2 15:16 Lipase Reviewed. ar2 15:16 Liver Profile Reviewed. ar2 16:25 Admission / Observation Status ordered. EDMS 16:25 PUREED DIET ordered. EDMS 16:26 SPUTUM CULTURE AND GRAM STAIN Ordered. EDMS 16:39 Esophagram Barium Swallow Ordered. EDMS 04/23 10:38 T-Sheet-- Draft Copy was scanned into [employer] and attached to record. gb 10:39 Radiology Report was scanned into [employer] and attached to record. gb Administered Medications: 04/22 14:50 Drug: NS 0.9% 1000 ml [sodium chloride 0.9 % intravenous solution] Route: IV; Rate: kr3 bolus; Site: left forearm; Signatures: Dispatcher [employer] EDMS Debbie Crockett, Reg Reg gb Berta Cage, Reg Reg lg Staci Roa,RN RN kr3 Darrell Gallagher PA-C PASofía ar2 Shira Díaz RN RN rs3 Ronald Jin RN RN jmb Andrews, Steven RN PAIGE sa The chart was reviewed and I authenticate all verbal orders and agree with the evaluation and treatment provided.Corrections: (The following items were deleted from the chart) 16:58 16:24 Cookie Swallow Mod.Ba Swallow ordered. EDMS EDMS Attachments: 15:05 [facility] Payment Agreement lg 04/23 10:38 T-Sheet-- Draft Copy gb Chart Complete MTDD
[2016-04-24] MEDS: LATANOPROST 0.005% OPHTH SOLN 2.5 ML OU SCH (20:28)
[2016-04-24] MEDS: SIMVASTATIN 20 MG TAB PO SCH (20:28)
[2016-04-24 22:00] VITALS: BP 160/70
[2016-04-25] MEDS: MEROPENEM INJ 1 GM in D5W MINI-BAG PLUS 100 ML IV SCH ×3 (01:31→17:56)
[2016-04-25 06:00] VITALS: BP 123/65
[2016-04-25 06:17] LABS: BASO % 0.2 % (0.0-1.0); EOS # 0.2 K/mm3 (0.0-0.50); EOS % 3.8 % (0.0-3.0); LARGE UNSTAINED CELL # 0.2 K/mm3 (0.0-0.4); LARGE UNSTAINED CELL % 2.6 % (0.0-4.0); LYMPH % 16.1 % (24.0-44.0); MEAN CORPUSCULAR HEMOGLOBIN 31.2 pg (27.0-33.0); MEAN CORPUSCULAR HGB CONC 33.4 g/dl (32.0-36.5); MEAN CORPUSCULAR VOLUME 93.3 fl (80.0-96.0); MONO # 0.4 K/mm3 (0.0-0.8); MONO % 6.2 % (0.0-5.0); NEUTROPHILS # 4.3 K/mm3 (1.8-7.7); NEUTROPHILS % 71.1 % (36.0-66.0); PLATELET COUNT, AUTOMATED 365 k/mm3 (150-450); RED CELL DISTRIBUTION WIDTH 12.9 % (11.5-14.5); WHITE BLOOD COUNT 6.1 K/mm3 (4.0-10.0)
[2016-04-25 06:56] LABS: ALBUMIN 2.3 GM/DL (3.2-5.2); ALBUMIN/GLOBULIN RATIO 0.62 (1.00-1.93); ALKALINE PHOSPHATASE 53 U/L (45-117); ALT/SGPT 13 U/L (12-78); ANION GAP 7 MEQ/L (8-16); AST/SGOT 27 U/L (15-37); BILIRUBIN,TOTAL 0.6 MG/DL (0.2-1.0); BLOOD UREA NITROGEN 8 MG/DL (7-18); CALCIUM LEVEL 8.2 MG/DL (8.8-10.2); CARBON DIOXIDE LEVEL 28 MEQ/L (21-32); CHLORIDE LEVEL 101 MEQ/L (98-107); CREATININE FOR GFR 0.66 MG/DL (0.70-1.30); GLOMERULAR FILTRATION RATE > 60.0 (>35); GLUCOSE, FASTING 89 MG/DL (83-110); MAGNESIUM LEVEL 1.9 MG/DL (1.8-2.4); POTASSIUM SERUM 4.1 MEQ/L (3.5-5.1); SODIUM LEVEL 136 MEQ/L (136-145)
[2016-04-25] MEDS: HEPARIN SOD (PORCINE) 5000 UNITS/ML VIAL SQ SCH ×2 (09:00→21:16)
[2016-04-25] MEDS: SINEMET 25-100 MG TAB PO SCH ×3 (09:55→21:15)
[2016-04-25] MEDS: LISINOPRIL 10 MG TAB PO SCH (09:58)
--- NOTE | 2016-04-25 12:42 | IPN ---
DATE: 04/25/2016 SUBJECTIVE: This is an 85-year-old male who is seen and examined at the bedside. Overnight, no reported acute events. This morning states that he feels fine, wants to know when he can go down for the testing for his swallow. Reportedly was eating a pureed diet this morning without any coughing spells. No chest pain, shortness of breath, nausea, vomiting. Had two bowel movements this morning, reported was formed. OBJECTIVE: VITAL SIGNS: Blood pressure 123/65, heart rate 67, respiration rate 18, pulse oximetry 98% on room air. Temperature 98.1. Intake and output 1950 and 200. He had three voids and two bowel movements documented. GENERAL: The patient is sitting in bed comfortable. No acute distress. He is awake, alert, and oriented times three. Pleasant, cooperative. Appears stated age. HEENT: Normocephalic, atraumatic. Moist oral mucosa. NECK: Supple. Trachea midline. No jugular venous distention (JVD). CHEST: Symmetric chest rise. No accessory muscle use. Breath sounds were diminished in the lung bases. No accessory muscle use. Positive E to A in the right lung base. HEART: Regular rate and rhythm. S1, S2 present. ABDOMEN: Soft, nontender, nondistended. Bowel sounds present. No guarding. No rebound. EXTREMITIES: No pedal edema. Pedal pulses present bilaterally. LABORATORY DATA: WBC 6.1, hemoglobin 11.8, hematocrit 35.2, platelets 365. Neutrophils 71.1, sodium 136, potassium 4.1, chloride 101, carbon dioxide 28, BUN 8, creatinine 0.66, glucose 89, magnesium 1.9, total bilirubin 0.6, AST 27, ALT 13, alkaline phosphatase 53. Chest x-ray on admission showed right lower lobe infiltrate increased, granulomatous disease, left lower lobe atelectasis. CT of the abdomen and pelvis showed mild to moderate cardiomegaly with small amount of pericardial effusion, patchy areas of consolidation within the right middle lobe and lower lobe. Moderate atrophic changes in the left kidney without hydronephrosis, moderate diffuse retained colonic stool. Esophageal gram, barium swallow showed repeated laryngeal penetration and severe episodes of tracheal aspiration productive of mild coughing and throat clearing. IMPRESSION/PLAN: Mr. Pa is an 85-year-old male with past medical history of Parkinson's disease, recurrent aspiration pneumonia, who was sent in from neurology office for further evaluation of his swallow study. 1. Aspiration pneumonia, secondary to progression of swallowing difficulty and Parkinson's disease. Currently on day 4 of meropenem. Appears to be tolerating antibiotic well. He has a cookie swallow study pending today and also speech pathology pending. It is possible that should he fail his cookie swallow, he will likely require percutaneous endoscopic gastrostomy (PEG) tube placement. 2. Parkinson's disease with dysphagia. Plan for a cookie swallow, as mentioned above. Continue Sinemet 0.5 mg three times a day. 3. Hypertension. Continue home dose of Lisinopril 10 mg by mouth daily. 4. Hyperlipidemia. Continue simvastatin 20 mg by mouth at night. 5. Deep vein thrombosis (DVT) prophylaxis. Sequential compression device (SCD) and TEDs. Have started heparin. My preceptor for this patient encounter was Dr. Houston. The preceptor was physically present in the building during the encounter and was fully available. As needed, all aspects of the patient interview, examination, medical decision making process, and medical care plan development were reviewed and approved by the preceptor. The preceptor is aware and concurs with the plan as stated in the body of this note and will attest to such by his/her cosignature. STACI
[2016-04-25 14:00] VITALS: BP 131/58
[2016-04-25] MEDS: SIMVASTATIN 20 MG TAB PO SCH (21:15)
[2016-04-25] MEDS: LATANOPROST 0.005% OPHTH SOLN 2.5 ML OU SCH (21:16)
[2016-04-25 22:00] VITALS: BP 134/64
[2016-04-26] MEDS: MEROPENEM INJ 1 GM in D5W MINI-BAG PLUS 100 ML IV SCH ×3 (01:08→18:15)
[2016-04-26] MEDS: ACETAMINOPHEN TAB 650MG DOSE (2X325MG) PO PRN ×2 (02:48→21:04)
[2016-04-26 06:00] VITALS: BP 134/63
[2016-04-26 06:33] LABS: BASO % 0.4 % (0.0-1.0); EOS # 0.2 K/mm3 (0.0-0.50); EOS % 3.8 % (0.0-3.0); LARGE UNSTAINED CELL # 0.2 K/mm3 (0.0-0.4); LARGE UNSTAINED CELL % 3.6 % (0.0-4.0); LYMPH # 1.1 K/mm3 (1.5-4.5); LYMPH % 21.6 % (24.0-44.0); MEAN CORPUSCULAR HEMOGLOBIN 31.1 pg (27.0-33.0); MEAN CORPUSCULAR HGB CONC 33.5 g/dl (32.0-36.5); MEAN CORPUSCULAR VOLUME 92.8 fl (80.0-96.0); MONO # 0.3 K/mm3 (0.0-0.8); MONO % 5.2 % (0.0-5.0); NEUTROPHILS # 3.2 K/mm3 (1.8-7.7); NEUTROPHILS % 65.3 % (36.0-66.0); PLATELET COUNT, AUTOMATED 383 k/mm3 (150-450); RED CELL DISTRIBUTION WIDTH 12.8 % (11.5-14.5)
[2016-04-26 06:51] LABS: ALBUMIN 2.5 GM/DL (3.2-5.2); ALBUMIN/GLOBULIN RATIO 0.68 (1.00-1.93); ALKALINE PHOSPHATASE 57 U/L (45-117); ALT/SGPT 14 U/L (12-78); ANION GAP 7 MEQ/L (8-16); AST/SGOT 41 U/L (15-37); BILIRUBIN,TOTAL 0.4 MG/DL (0.2-1.0); BLOOD UREA NITROGEN 10 MG/DL (7-18); CALCIUM LEVEL 8.5 MG/DL (8.8-10.2); CARBON DIOXIDE LEVEL 30 MEQ/L (21-32); CHLORIDE LEVEL 99 MEQ/L (98-107); CREATININE FOR GFR 0.72 MG/DL (0.70-1.30); GLOMERULAR FILTRATION RATE > 60.0 (>35); GLUCOSE, FASTING 94 MG/DL (83-110); MAGNESIUM LEVEL 2.1 MG/DL (1.8-2.4); POTASSIUM SERUM 4.3 MEQ/L (3.5-5.1); SODIUM LEVEL 136 MEQ/L (136-145); TOTAL PROTEIN 6.2 GM/DL (6.4-8.2)
[2016-04-26 10:22] VITALS: BP 141/66
[2016-04-26] MEDS: SINEMET 25-100 MG TAB PO SCH ×3 (10:40→21:02)
[2016-04-26] MEDS: LISINOPRIL 10 MG TAB PO SCH (10:40)
[2016-04-26] MEDS: HEPARIN SOD (PORCINE) 5000 UNITS/ML VIAL SQ SCH ×2 (10:41→21:02)
[2016-04-26 14:00] VITALS: BP 130/65
--- NOTE | 2016-04-26 14:08 | IPN ---
DATE: 04/26/2016 SUBJECTIVE: This is an 85-year-old male who is seen and examined at the bedside. Overnight was complaining of chest pain and at that time was given Tylenol. He had speech and swallow evaluation performed and was recommended pureed thickened liquid diet. This morning feels the same as yesterday. No shortness of breath, palpitations, fevers, chills, night sweats. Was able to tolerate food this morning without coughing spells. Anxious to know when he can go home. OBJECTIVE: VITAL SIGNS: Blood pressure 141/66, heart rate 59, temperature 97.8, respiration rate 19, pulse oximetry 97% on room air. Intake and output the last 24 hours 1020 and 200, 1 bowel movement documented, 3 voids documented. GENERAL: The patient was lying in bed comfortable. No acute distress. He is alert, awake, and oriented times three. Pleasant, cooperative. HEENT: Normocephalic, atraumatic. Moist oral mucosa. NECK: Supple. Trachea midline. Extraocular movements intact. No jugular venous distention (JVD). CHEST: Symmetric chest rise. No accessory muscle use. Breath sounds were diminished with occasional crackles in the right lung base. Positive E to A egophony. HEART: Regular rate and rhythm. S1, S2 present. ABDOMEN: Soft, nontender, nondistended. Bowel sounds present. No guarding. No rebound. EXTREMITIES: No pedal edema. Pedal pulses present bilaterally. LABORATORY DATA: WBC 5, hemoglobin 12.2, hematocrit 36.4, platelets 383. Sodium 136, potassium 4.3, chloride 99, carbon dioxide 30, BUN 10, creatinine 0.72, glucose 94, AST 41, ALT and alkaline phosphatase normal. CT of abdomen and pelvis showed mild to moderate cardiomegaly with small amount of pericardial effusion of 7 mm maximum depth. IMPRESSION/PLAN: Mr. Pa is an 85-year-old male with past medical history of Parkinson's disease with dysphagia sent in from neurology's office for further evaluation of his swallow. 1. Dysphagia. Due to Parkinson's disease. Was evaluated by speech pathologist yesterday and was recommended a nectar thick liquid, upright position with meals , only feed when awake, discourage talking during feeding, and alternating liquids with solids. 2. Aspiration pneumonia. Continue Meropenem. 3. Abnormal CT. CT of abdomen and pelvis incidentally showed small amount of pericardial effusion. Echocardiogram report for further evaluation of this effusion is pending at this time. Will followup result. 4. Chest pain. Pain was reproducible on physical exam, likely secondary to costochondritis. However, have ordered an EKG and troponin to rule out coronary artery disease. 5. Hypertension. Blood pressures within reasonable range. Continue current lisinopril 10 mg by mouth daily. 6. Hyperlipidemia. Continue Zocor 20 mg by mouth at night. 7. Deep vein thrombosis (DVT) prophylaxis. Sequential compression device (SCD) and thromboembolic deterrent stockings (TEDs). Heparin. My preceptor for this patient encounter was Dr. Blankenship. The preceptor was physically present in the building during the encounter and was fully available. As needed, all aspects of the patient interview, examination, medical decision making process, and medical care plan development were reviewed and approved by the preceptor. The preceptor is aware and concurs with the plan as stated in the body of this note and will attest to such by his/her cosignature. STACI
--- NOTE | 2016-04-26 19:42 | ECHO ---
DATE OF PROCEDURE: 04/26/2016 REFERRING PHYSICIAN: Dr. Hua Houston and Dr. Owen Blankenship. INDICATION: Pericardial effusion. HEIGHT: 178 cm WEIGHT: 69 kg DIMENSIONS: IVS: 1.3 LV: 4.5 LVPW: 1.0 LA: 3.4 Aorta: 4.3 Ascending aorta: 3.5 FINDINGS: The study is of acceptable technical quality. Left ventricle is normal size and systolic function with estimated ejection fraction (EF) around 65%. I do not appreciate any segmental wall motion abnormalities. Right ventricle is also of normal size and systolic function. Left atrium is at least moderately enlarged. Right atrium is probably normal size. Aortic valve has three-leaflet anatomy. It is mildly sclerotic but mobility is preserved. There are mild degenerative abnormalities of mitral valve. Tricuspid and pulmonic valves appear grossly normal. Small amount of pericardial fat pad and trivial pericardial effusion is noted. Inferior vena cava is of small caliber. Aortic root is dilated at 4.3 cm. Aortic arch and abdominal aorta were not well seen. Doppler interrogation of aortic valve reveals mild insufficiency and no stenosis. There is trace mitral and trace tricuspid insufficiency. Calculated pulmonary artery pressure is within normal limits. No significant pulmonary insufficiency is seen. Mitral inflow pattern and tissue Doppler imaging of mitral annulus reveal grade 1 diastolic dysfunction. CONCLUSIONS: 1. Study is of acceptable technical quality. 2. Normal left ventricle (LV) size with borderline left ventricular hypertrophy (LVH) and preserved LV systolic function. Grade 1 diastolic dysfunction. 3. Aortic sclerosis resulting in mild insufficiency. 4. Mildly dilated aortic root (4.3 cm). 5. Normal central venous pressure and pulmonary artery pressure. 6. Trivial pericardial effusion. COMMENT: Subacute bacterial endocarditis (SBE) prophylaxis is not recommended. MTDD
[2016-04-26] MEDS: SIMVASTATIN 20 MG TAB PO SCH (21:03)
[2016-04-26] MEDS: LATANOPROST 0.005% OPHTH SOLN 2.5 ML OU SCH (21:08)
[2016-04-26 22:00] VITALS: BP 148/78
[2016-04-27] MEDS: MEROPENEM INJ 1 GM in D5W MINI-BAG PLUS 100 ML IV SCH ×2 (01:56→09:09)
[2016-04-27 06:00] VITALS: BP 148/68
[2016-04-27 07:03] LABS: BASO % 0.7 % (0.0-1.0); EOS # 0.2 K/mm3 (0.0-0.50); EOS % 4.4 % (0.0-3.0); LARGE UNSTAINED CELL # 0.2 K/mm3 (0.0-0.4); LARGE UNSTAINED CELL % 3.5 % (0.0-4.0); LYMPH # 1.4 K/mm3 (1.5-4.5); LYMPH % 25.2 % (24.0-44.0); MEAN CORPUSCULAR HEMOGLOBIN 31.8 pg (27.0-33.0); MEAN CORPUSCULAR VOLUME 93.5 fl (80.0-96.0); MONO # 0.3 K/mm3 (0.0-0.8); MONO % 5.5 % (0.0-5.0); NEUTROPHILS # 3.3 K/mm3 (1.8-7.7); NEUTROPHILS % 60.8 % (36.0-66.0); PLATELET COUNT, AUTOMATED 434 k/mm3 (150-450); RED CELL DISTRIBUTION WIDTH 12.9 % (11.5-14.5); WHITE BLOOD COUNT 5.4 K/mm3 (4.0-10.0)
[2016-04-27 07:27] LABS: ALBUMIN 2.8 GM/DL (3.2-5.2); ALBUMIN/GLOBULIN RATIO 0.68 (1.00-1.93); ALKALINE PHOSPHATASE 60 U/L (45-117); ALT/SGPT 19 U/L (12-78); ANION GAP 6 MEQ/L (8-16); AST/SGOT 52 U/L (15-37); BILIRUBIN,TOTAL 0.5 MG/DL (0.2-1.0); BLOOD UREA NITROGEN 12 MG/DL (7-18); CALCIUM LEVEL 8.8 MG/DL (8.8-10.2); CARBON DIOXIDE LEVEL 30 MEQ/L (21-32); CHLORIDE LEVEL 99 MEQ/L (98-107); GLOMERULAR FILTRATION RATE > 60.0 (>35); GLUCOSE, FASTING 97 MG/DL (83-110); MAGNESIUM LEVEL 2.2 MG/DL (1.8-2.4); POTASSIUM SERUM 4.3 MEQ/L (3.5-5.1); SODIUM LEVEL 135 MEQ/L (136-145); TOTAL PROTEIN 6.9 GM/DL (6.4-8.2)
[2016-04-27 08:24] VITALS: BP 148/68
[2016-04-27] MEDS: LISINOPRIL 10 MG TAB PO SCH (08:24)
[2016-04-27] MEDS: HEPARIN SOD (PORCINE) 5000 UNITS/ML VIAL SQ SCH (08:25)
[2016-04-27] MEDS: SINEMET 25-100 MG TAB PO SCH (08:25)
[2016-04-27] MEDS ORDERED: LEVA750T PO (12:14)
[2016-04-27] MEDS ORDERED: AUGM875T27 PO (13:21)
--- NOTE | 2016-04-27 18:01 | ECGEPIP ---
Stationary ECG Study [facility] Test Date: 2016-04-26 Pat Name: MANDIE JIMENES Department: Room: [place] [address] Gender: M Reheater: ROXANNE : 1930 Requested By: SHASHANK Harrington Order Number: [id number] Reading MD: Spencer Fitzpatrick Measurements Intervals Martin Rate: 54 P: 11 FL: 256 QRS: -2 QRSD: 145 T: 30 QT: 463 QTc: 442 Interpretive Statements SINUS BRADYCARDIA WITH FIRST DEGREE AV BLOCK RIGHT BUNDLE BRANCH BLOCK LAST TRACING ON 07/31/2012 AT 8:37:20. NO SIGNIFICANT CHANGES Electronically Signed On 04-27-2016 18:00:45 EST by Spencer Fitzpatrick
--- NOTE | 2016-04-28 08:13 | DSES ---
DATE OF ADMISSION: 04/22/2016 DATE OF DISCHARGE: 04/27/2016 PRIMARY CARE PROVIDER: Dr. Elizondo COMPLICATIONS: None PROCEDURES: None CONSULTS: None DISCHARGE DIAGNOSES: 1. Aspiration pneumonia. 2. Dysphagia. 3. Abnormal CT. 4. Hypertension. 5. Dyslipidemia. 6. Parkinson's Disease. 7. Prostate cancer. DIAGNOSTIC STUDIES: Chest x-ray on admission showed right lower lobe infiltrate, old granulomatous disease. CT of abdomen and pelvis showed mild to moderate cardiomegaly with mild pericardial effusion. Status post prostatic seed implants. Esophageal barium swallow: Repeated laryngeal penetration and severe episodes of tracheal aspiration productive of mild coughing and throat clearing. Echocardiogram showed normal left ventricular (LV) size with borderline left ventricular hypertrophy, preserved LV systolic function, Grade 1 diastolic dysfunction, aortic sclerosis, mildly dilated aortic root, normal central venous pressure (CVP) and pulmonary artery pressure and trivial pericardial effusion. BRIEF HOSPITAL COURSE: Mr. Pa is an 85-year-old male who has a history of Parkinson's disease and dysphagia who was sent in from neurology office due to concern for worsening aspiration risk and further work-up with questionable need for possible percutaneous endoscopic gastrostomy (PEG) placement. Prior to admission he was being treated outpatient with Levaquin 750 since April 16, 2016 for possible pneumonia. The patient reportedly continued to complain of coughing spells with eating. For full history and physical, please see dictation on admission. Because of his symptoms he was admitted for further evaluation. He was started on treatment for aspiration pneumonia with Meropenem since admission. He also was evaluated by speech pathologist and was deemed safe to be on puree, nectar thick liquid diet. Because he is able to tolerate puree diet, a percutaneous endoscopic gastrostomy (PEG) was not required. With treatment and modification of his dietary intake, his condition improved. He was incidentally found to have pericardial effusion on CT of the abdomen and pelvis; however, echocardiogram performed showed trivial pericardial effusion. Because trivial finding on echocardiogram, no further intervention was pursued. Do to his improved condition, the patient was recommended for discharge on 04/27/2016. PHYSICAL EXAMINATION ON DISCHARGE: VITAL SIGNS: Blood pressure 148/60, heart rate 60, temperature 97.1, respiratory rate 19, pulse oximetry 96% on room air. GENERAL: The patient was sitting in bed comfortably, no acute distress. He is awake, alert and oriented times three, pleasant and cooperative and friendly. HEENT: Normocephalic atraumatic. Moist mucous membranes. NECK: Supple. Trachea midline. No jugular venous distention (JVD). CHEST: Symmetric chest rise, no accessory muscle use. Breath sounds were clear to auscultation bilaterally. There is dullness to percussion bilateral lung bases. E:A egophony on the right lung base. HEART: Regular rate and rhythm, S1, S2 present. ABDOMEN: Soft, nontender, nondistended. Bowel sounds present. No guarding, no rebound. EXTREMITIES: No pedal edema. Pedal pulses present bilaterally. LABORATORY DATA AT DISCHARGE: WBC 5.4, hemoglobin 13, hematocrit 39.1, platelets 434. Sodium 135, potassium 4.3, chloride 99, carbon dioxide 30, BUN 12, creatinine 0.8, glucose 97, magnesium 2.2, direct bilirubin 0.5. DISPOSITION: Home. ACTIVITIES: As tolerated. DIET: Thickened honey, puree diet. The patient is to remain upright. Should not talk when feeding. Instructions were provided to the patient and family regarding feeding at the time of discharge. CONDITION: Stable. FOLLOW UP: Dr. Elizondo within one week and Dr. Springer in 2-3 weeks. DISCHARGE MEDICATIONS: NEW MEDICATIONS: Augmentin 897186 mg 1 tab by mouth twice a day for 5 days CONTINUE THE FOLLOWING HOME MEDICATIONS: Carbidopa/levodopa 97370, 0.5 tab TID a day Lisinopril 10 mg by mouth daily Zocor 20 mg by mouth every PM Travatan Z one drop both eyes daily at bedtime DISCHARGE INSTRUCTIONS: The patient was instructed to return to the hospital if he has worsening or recurrent symptoms or anything else concerning to patient or family. All of this was explained to the patient and family at the time of discharge and all questions answered. My preceptor for this patient encounter was Dr. Blankenship. The preceptor was physically present in the building during the encounter and was fully available as needed. All aspects of the patient interview, examination, medical decision making process, and medical care plan development were reviewed and approved by the preceptor. The preceptor is aware and concurs with the plan as stated in the body of this note and will attest to such by his/her co-signature. cc: Dr. Caro SMALL
== END 2016-04-27 13:45 | disposition home health service (06) | DRG 178 ==
LOC: M ED 13:03 → M ED INP 16:11 → M MSPAV 17:42
PROVIDERS: ADMIT Internal Medicine; ATTEND Internal Medicine
DX: J69.0 Pneumonitis due to inhalation of food and vomit (principal); I31.3 Pericardial effusion (noninflammatory); I10 Essential (primary) hypertension; M94.0 Chondrocostal junction syndrome [Tietze]; G20 Parkinson's disease; R13.10 Dysphagia, unspecified; E78.5 Hyperlipidemia, unspecified; Z79.899 Other long term (current) drug therapy; Z85.46 Personal history of malignant neoplasm of prostate

== ENCOUNTER → 2016-05-06 | Outpatient (CLI) | payer MEDICARE ==
[~2016-05-06] MED LIST: AUGM875T27 PO; CARB25TA PO; LEVA750T PO; LISI10TA4 PO; SIMV20TA2 PO; TRAV04OPD OU
--- NOTE | 2016-05-06 16:16 | REP ---
Chest x-ray: Two views: History: Pneumonia. Comparison chest x-ray: 04/22/2016. Findings: There is a dense area of consolidation persistent in the right middle lobe. No other infiltrate is seen. The lungs overall are somewhat hyperinflated. There are granulomatous calcifications in the right hilus and right lower lobe. There are clips in the upper abdomen. The aorta somewhat tortuous. Left lung is clear. Impression: Persistent right middle lobe infiltrate. Question central mass lesion. Consider chest CT study.
== END ==
LOC: M CLY 14:28
PROVIDERS: ATTEND Family Medicine
DX: J18.9 Pneumonia, unspecified organism (principal)

== ENCOUNTER 2016-06-08 13:10 | Inpatient (IN) | payer MEDICARE ==
[~2016-06-08] VITALS: Ht 182.9 cm; Wt 63.2 kg
[2016-06-08] MEDS ORDERED: BENZ100C5 PO (13:26)
[2016-06-08] MEDS ORDERED: diazePAM 2 MG TAB PO ONE (17:30)
[2016-06-08 17:38] LABS: BASO % 0.3 % (0.0-1.0); EOS % 0.6 % (0.0-3.0); LARGE UNSTAINED CELL # 0.3 K/mm3 (0.0-0.4); LARGE UNSTAINED CELL % 3.4 % (0.0-4.0); LYMPH # 1.5 K/mm3 (1.5-4.5); LYMPH % 16.4 % (24.0-44.0); MEAN CORPUSCULAR HEMOGLOBIN 30.6 pg (27.0-33.0); MEAN CORPUSCULAR HGB CONC 32.6 g/dl (32.0-36.5); MEAN CORPUSCULAR VOLUME 93.6 fl (80.0-96.0); MONO # 0.5 K/mm3 (0.0-0.8); MONO % 6.1 % (0.0-5.0); NEUTROPHILS # 6.5 K/mm3 (1.8-7.7); NEUTROPHILS % 73.3 % (36.0-66.0); PLATELET COUNT, AUTOMATED 541 k/mm3 (150-450); RED CELL DISTRIBUTION WIDTH 13.3 % (11.5-14.5); WHITE BLOOD COUNT 8.9 K/mm3 (4.0-10.0)
[2016-06-08 17:56] LABS: ANION GAP 10 MEQ/L (8-16); BLOOD UREA NITROGEN 14 MG/DL (7-18); CALCIUM LEVEL 8.4 MG/DL (8.8-10.2); CARBON DIOXIDE LEVEL 28 MEQ/L (21-32); CHLORIDE LEVEL 98 MEQ/L (98-107); CREATININE FOR GFR 0.86 MG/DL (0.70-1.30); GLOMERULAR FILTRATION RATE > 60.0 (>35); GLUCOSE, FASTING 120 MG/DL (83-110); POTASSIUM SERUM 4.4 MEQ/L (3.5-5.1); SODIUM LEVEL 136 MEQ/L (136-145)
[2016-06-08] MEDS ORDERED: ISOVUE-370 76% 100ML VIAL (Q9967) As Ordered ONE (18:01)
--- NOTE | 2016-06-08 19:17 | REP ---
CHEST, TWO VIEWS: HISTORY: Orthopnea. COMPARISON: 05/06/2016 An infiltrate is present in the right middle lobe increased compared to the previous study. A calcified granuloma is present in the right lower lobe. An ill-defined parenchymal density is present in the left lower lobe. The heart is normal in size. The pulmonary vasculature is normal in appearance. Degenerative change is present in the thoracic spine. IMPRESSION: 1. Right middle lobe infiltrate increased compared to the previous study. 2. Old granulomatous disease. 3. There is an ill-defined parenchymal density in the left lower lobe. Signed by Umer Luciano MD 06/08/2016 07:19 P
--- NOTE | 2016-06-08 21:50 | REPUSA ---
CLINICAL HISTORY: RLL mass vs infil lager than last month. TECHNIQUE: Multiple axial CT images were obtained through the thorax without IV contrast material. COMMENTS: There is a rounded density noted in the lingula measuring approximately 3 x 2.1 cm. There is a mass like consolidation noted in the right middle lobe measuring 5.5 x 6.5 cm although this could represen t typical pneumonia, malignancy is suspected. There are several subtle nodules noted within the ling ramses largest of which measures 15 mm. There is a rounded consolidation also noted in the superior segm ent of the right lower lobe medially measuring approximately 5 x 3.8 cm. Further evaluation is recom mended with CT of the chest and pelvis with IV contrast versus PET-CT. There are calcified right hilar nodes noted. There is a 6 mm subpleural calcified granuloma noted in the right lower lobe. There are no pleural effusions. Several borderline enlarge mediastinal node s are present. The right hilar adenopathy is suspected. Heart is enlarged. There is pericardial effusion noted. Great vessels are within normal limits. The visualized portions of the liver are of uniform attenuation without mass or defect. There is no intra or extrahepatic biliary ductal dilatation. The spleen is unremarkable. The visualized pancrea s is of normal contour and attenuation characteristics. There is no evidence of adrenal mass. The v isualized portions of the kidneys present no abnormalities. Multiple calcified splenic granulomas ar e present 15 mm right renal cyst is seen status post cholecystectomy. The bony structures are free of lytic or blastic lesions. IMPRESSION: 1. Several rounded densities in the right and left lung as discussed above. Malignancy is not exclu ded. Several subtle nodules in the lingula. 2. Several borderline enlarge mediastinal nodes are present. The right hilar adenopathy is suspecte d. 3. Pericardial effusion. Cardiomegaly. 4. Additional findings as discussed above. Thank you for your kind referral of this patient. We appreciate the opportunity to participate in th is patient's care.
[2016-06-08] MEDS ORDERED: BENZONATATE 100 MG CAP PO PRN (22:30)
[2016-06-08] MEDS ORDERED: MIRALAX *UNIT DOSE* 17GM PACKET PO PRN (22:30)
[2016-06-08] MEDS ORDERED: SENNA 8.6 MG TAB (SENOKOT) PO PRN (22:30)
[2016-06-08 23:45] VITALS: BP 159/72
[2016-06-09] MEDS ORDERED: SLF 3 ML SYR IV PRN (00:15)
[2016-06-09] MEDS: SINEMET 25-100 MG TAB PO SCH ×4 (00:17→20:29)
[2016-06-09] MEDS: SIMVASTATIN 20 MG TAB PO SCH ×2 (00:17→20:29)
--- NOTE | 2016-06-09 02:40 | HPE ---
DATE OF ADMISSION: 06/08/2016 PRIMARY CARE PROVIDER: Darrell Elizondo DO. CHIEF COMPLAINT: Sensation of a mass in the throat. HISTORY OF PRESENT ILLNESS: The patient is an 85-year-old man with a history of dysphagia, recently admitted with aspiration pneumonia, follows with Dr. Springer of neurology, does not believe that his oroesophageal dysphagia is related to Parkinson's. He has a history of thyroid nodules. His dysphagia has been worsening over the last several days, although he admits he has not been compliant with a pureed diet. Since he was discharged on his last stay, the patient has also had increased agitation at night with difficulty with sleeping. His primary care provider (PCP) started him on trazodone. He took this once, but felt as though he was going to pass out and did not want to take it any further. The patient tells me that when he lays flat he gets a sensation that he is choking. It is more of a choking sensation than it is specifically shortness of breath. He denies lightheadedness, dizziness. Denies any change in his mental status. On the patient's last stay, he was noted to have a small pericardial effusion and some mild diastolic dysfunction on his echocardiogram. PAST MEDICAL HISTORY: 1. Parkinson's disease. 2. Aspiration pneumonia with dysphagia. 3. Hypertension. 4. Dyslipidemia. 5. Insomnia. 6. Prostate cancer status post external beam. 7. Brain tumor status post Gamma Knife. HOME MEDICATIONS: - Sinemet 25/100 three times a day - Tessalon Perles 400 mg as needed - senna - MiraLAX - simvastatin 20 mg daily - trazodone 50 nightly, the patient refused to take any further PAST SURGICAL HISTORY: 1. Gamma Knife in 2001 for a brain tumor. 2. External beam for the prostate in 2011. 3. Cholecystectomy. SOCIAL HISTORY: The patient lives with his family. He is very hard of hearing. He denies any alcohol, illicit drug use. He requires assistance with his activities of daily living (ADLs). FAMILY HISTORY: Noncontributory. REVIEW OF SYSTEMS: Negative other than history of present illness (HPI). ALLERGIES: No known drug allergies. PHYSICAL EXAMINATION: VITAL SIGNS: Temperature 97.4, pulse 79, respiratory rate 18, blood pressure 162/76, oxygen saturation 97% on room air. GENERAL: He is a frail, elderly, male sitting up on the edge of the stretcher. He does not appear to be in any acute distress. HEENT: He has a dysconjugate gaze. He has bitemporal wasting. He has moist mucous membranes. No elevation of central venous pressure (CVP). He has a mask-like face, resting tremor. CARDIOVASCULAR EXAMINATION: S1, S2, regular. RESPIRATORY EXAMINATION: Clear. ABDOMINAL EXAMINATION: Benign. EXTREMITIES: No clubbing, cyanosis or edema. He appeared mildly disheveled. He had some cogwheel rigidity. LABORATORY STUDIES: WBC 8.9, hemoglobin 13.3, hematocrit 40.6, platelet count 541. Chemistry panel: Sodium 136, potassium 4.4, chloride 98, bicarbonate 28, BUN 14 , creatinine 0.8. IMAGING: The patient had a CT scan of the chest that reveals several rounded densities in the right and left lung, malignancy not excluded. Several borderline enlarged mediastinal nodes present. Pericardial effusion. The patient also had a CT scan of the neck that revealed a 5 mm pharyngocele. ASSESSMENT AND PLAN: This is an 85-year-old man with dysphagia and the sensation of a mass in his neck. 1. Dysphagia and the sensation of a mass in the neck. 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 He also has a thyroid nodule and fairly advanced Parkinson's , which may be multifactorial nature to the dysphagia and his aspirations. At this time, I have contacted Dr. Ruiz of otolaryngology (ENT) who has agreed to see the patient in consultation. I think he would benefit from flex laryngoscopy to further elucidate the etiology for his dysphagia. 2. Orthopnea. The patient does not appear to be fluid overloaded, does not appear to be in heart failure; however, he does get short of breath when he lays flat. This may be related simply to the aspiration and as such should have a repeat speech therapy evaluation. Continue with his pureed diet. He does have a pericardial effusion. We will recheck the echo with quick look to assess the pericardial effusion. It also may be related to his known pulmonary masses. The patient tells me that he was seen by Dr. Swann last week, who recommended outpatient followup and no biopsy at this time. If the patient's symptom is fairly improving and it appears that this is the etiology for his symptoms, he may benefit from inpatient biopsy with further imaging with CT with intravenous (IV) contrast and inpatient pulmonary consult. Will keep the head of his bed elevated. Will trend his troponins. Recheck a BNP. Check orthostatics. 3. Parkinson's disease. Continue with Sinemet. Given that he is still agitated at night, I will provide him with as needed Valium for insomnia. This is likely related to his Parkinson's disease. He may benefit from inpatient neurology consultation if his symptoms fail to improve. We will continue him on his home bowel regimen. 4. Dyslipidemia. Continue with simvastatin. 5. Deep venous thrombosis (DVT) prophylaxis. The patient will be on Lovenox. DISPOSITION: The patient is admitted to progressive care unit to Dr. Blankenship's service, who will continue to follow the patient tomorrow at 7 a.m. [facility]PITALBraden
[2016-06-09 05:14] VITALS: BP 144/64
[2016-06-09 05:16] VITALS: BP 136/69
[2016-06-09 05:17] VITALS: BP 113/66
[2016-06-09] MEDS: SLF 3 ML SYR IV SCH ×3 (06:00→20:29)
[2016-06-09 06:11] LABS: MEAN CORPUSCULAR HEMOGLOBIN 31.6 pg (27.0-33.0); MEAN CORPUSCULAR HGB CONC 33.3 g/dl (32.0-36.5); MEAN CORPUSCULAR VOLUME 94.9 fl (80.0-96.0); RED CELL DISTRIBUTION WIDTH 13.5 % (11.5-14.5); WHITE BLOOD COUNT 7.3 K/mm3 (4.0-10.0)
[2016-06-09 06:44] LABS: ANION GAP 10 MEQ/L (8-16); BLOOD UREA NITROGEN 16 MG/DL (7-18); CALCIUM LEVEL 8.7 MG/DL (8.8-10.2); CARBON DIOXIDE LEVEL 27 MEQ/L (21-32); CHLORIDE LEVEL 98 MEQ/L (98-107); CREATININE FOR GFR 0.84 MG/DL (0.70-1.30); GLOMERULAR FILTRATION RATE > 60.0 (>35); GLUCOSE, FASTING 100 MG/DL (83-110); POTASSIUM SERUM 4.6 MEQ/L (3.5-5.1); SODIUM LEVEL 135 MEQ/L (136-145)
--- NOTE | 2016-06-09 06:50 | REP ---
CT NECK WITH CONTRAST: HISTORY: Pressure sensation. CONTRAST: Isovue 370, 75 mL. A small 5 mm right pharyngocele is present. The naso-, valencia-, and hypopharynx, larynx and subglottic trachea are otherwise normal in appearance. The salivary and thyroid glands are normal in appearance. Small lymph nodes less than 1 cm in size are present in the internal jugular chains, posterior triangles and submandibular areas. Atherosclerotic calcification is present at the carotid bifurcations. Degenerative change is present in the cervical spine. The lung apices are clear. The visualized sinuses are clear. IMPRESSION: 1. There is no neck mass or adenopathy. 2. There is a small 5 mm right pharyngocele. Signed by Umer Luciano MD 06/09/2016 08:23 A
--- NOTE | 2016-06-09 06:58 | ECGEPIP ---
Stationary ECG Study [facility] Test Date: 2016-06-08 Pat Name: MANDIE JIMENES Department: Room: - Gender: M [employer] Clerk: bebe : 1930 Requested By: EUGENE HERNÁNDEZ Order Number: [id number] Reading MD: Julienne Garcia Measurements Intervals [place] Rate: 79 P: -1 NE: 239 QRS: 33 QRSD: 140 T: 27 QT: 413 QTc: 474 Interpretive Statements SINUS RHYTHM WITH FIRST DEGREE AV BLOCK POSSIBLE LEFT ATRIAL ENLARGEMENT RIGHT BUNDLE BRANCH BLOCK STABLE C/W 04/26/16 Electronically Signed On 06-09-2016 6:57:43 EST by Julienne Garcia
[2016-06-09 08:00] VITALS: BP 141/65
[2016-06-09] MEDS: ENOXAPARIN 40 MG/0.4 ML SYRINGE (J1650) SC SCH (09:00)
[2016-06-09] MEDS ORDERED: GASTROGRAFIN SOLUTION 30ML PO ONE (09:30)
[2016-06-09] MEDS ORDERED: GASTROGRAFIN SOLUTION 30ML (Q9963) PO ONE (10:00)
[2016-06-09] MEDS ORDERED: ISOVUE-370 76% 100ML VIAL (Q9967) As Ordered ONE (11:04)
[2016-06-09 12:20] VITALS: BP 115/60
--- NOTE | 2016-06-09 13:22 | REP ---
CT abdomen and pelvis without and with IV contrast: With oral contrast. History: Lung mass. Comparison abdomen and pelvis CT study is from April 22, 2016. CT contrast dose: 75 ml of Isovue [address] findings: Preliminary digital corporate safety manager radiograph demonstrates that the patient is oblique somewhat to the right. Bowel gas pattern is unremarkable. Fiducial markers are noted in the prostate. There is a large area of consolidation and/or mass in the right middle lobe and some consolidation is seen in the right lower lobe as before. There is a small sliver of pericardial fluid again noted unchanged. No pleural effusion is seen. There are granulomatous calcifications scattered about the spleen and there is a tiny accessory splenule. No pancreatic lesion is seen. No adrenal mass is observed on either side. Clips are noted in the gallbladder fossa post cholecystectomy. No focal liver lesion is seen. No retroperitoneal mass or adenopathy is seen. Vascular calcification is noted in a normal caliber aorta. There is some residual contrast opacified urine in the collecting system even on the noncontrast portion of today's study. This is left over contrast from the contrast enhanced CT study done the previous day. Significant diffuse renal atrophy is noted of the left kidney and there is multifocal cortical scarring in the left kidney unchanged. There is a cyst in the right kidney measuring 2.1 cm in diameter unchanged. Small and large intestinal bowel loops are normal in the abdomen and pelvis. Urinary bladder is intact. Mildly prominent prostate is seen with fiducial markers as noted on plain corporate safety manager view. Bone window settings show some degenerative changes in the hips and lumbosacral spine. There is diffuse osteopenia but no bony destructive or blastic lesion is seen. Impression: Left renal cortical atrophy. Small cyst right kidney. Post cholecystectomy. Prostate fiducial markers in place. Mass versus consolidation right middle lobe and right lower lobe. Signed by Jordan Montgomery MD 06/09/2016 04:24 P
--- NOTE | 2016-06-09 13:54 | REP ---
CT study of the chest with IV contrast: History: Lung mass. Comparison is made with the previous day's CT study which was done without contrast. Comparison is also made with images of the lung bases from the abdominal CT study April 22, 2016. Chest x-ray is reviewed from June 08, 2016, April 22, 2016, May 06, 2016, and December 21, 2015. CT contrast dose: 75 ml of Isovue [address] findings: The thoracic aorta is elongate and somewhat tortuous. The ascending aorta measures 4.5 cm in AP dimension and is considered mildly dilated. There is fairly heavy left coronary artery vascular calcification. A small pericardial effusion is seen. No pleural effusion is evident. There are scattered normal-sized and normal appearing mediastinal lymph nodes. There is a right hilar lymph node with a fairly lucent center measuring only 7 x 11 mm. There are granulomatous lymph node calcifications in the right hilus as noted previously. There is a fairly large area of dense opacification involving much of the right middle lobe containing air bronchograms. Peripherally, there are low density areas in the right middle lobe lung parenchyma and there is a tiny sliver of adjacent fluid. These low density areas may be necrotic lung parenchyma. No definite lung mass lesion is seen although there is a somewhat rounded area at the infrahilar level and bronchial narrowing is seen here in the air bronchograms. There is also a similar area of consolidation and partial collapse with air bronchograms in the right lower lobe anteromedially. Both these areas must be considered chronic infiltrates as they are seen on the April 22, 2016 prior study. The radiograph of the chest has been abnormal in the right base medially since December 2015. There is also a new area of pulmonary parenchymal consolidation with air bronchograms in the lingular segment of the left upper lobe which measures 2.6 cm in diameter. This was not present in December 2015 or on May 06, 2016. It is unchanged from yesterday's chest CT. This could be inflammatory. There is another small nodular area in the left lower lobe posterior basal segment, 1.8 cm in diameter which is also new. A calcified granuloma is seen in the right lower lobe. Superior segment. Lung harper are otherwise clear. No bony destructive lesion is seen. There are clips in the upper abdomen. Granulomatous calcifications are seen in the spleen. There is a small cyst in the right kidney. Atrophic changes are seen in the left kidney. Impression: 1. Persistent infiltrate pattern in the right middle lobe and right lower lobe with possible right central hilar mass effect. Findings suspicious for pulmonary malignancy possibly with postobstructive pneumonia. Consider bronchoscopic and histologic correlation. 2. New area of consolidation or infiltrate in the left upper lobe lingular segment. Small nodule in the left lower lobe. Old granulomatous changes. Small amount of pericardial fluid. A tiny amount of fluid adjacent to the right middle lobe infiltrate. Signed by Jordan Montgomery MD 06/09/2016 04:25 P
--- NOTE | 2016-06-09 13:59 | IPNPDOC ---
Text Note Date of Service The patient was seen on 06/09/16. NOTE Subjective: The patient states he's feeling better today. Believed that he had been choking on food that he was getting earlier. Did well with breakfast today. States his Parkinson's movements is at baseline. Objective: Vitals: (see below) General: No acute distress, laying comfortably in bed. HEENT: Moist mucous membranes. Neck: No JVD or lymphadenopathy Cardiac: RRR, No murmurs Pulm: Diminished breath sounds coarse crackles at the bases right greater than left. No wheezing, rhonchi Abd: NT/ND + BS Ext: No edema or cyanosis. Right upper extremity resting tremor. Labs (see below) Images: CT Chest 06/08/16 COMMENTS: There is a rounded density noted in the lingula measuring approximately 3 x 2.1 cm. There is a mass like consolidation noted in the right middle lobe measuring 5.5 x 6.5 cm although this could represent typical pneumonia, malignancy is suspected. There are several subtle nodules noted within the lingula largest of which measures 15 mm. There is a rounded consolidation also noted in the superior segment of the right lower lobe medially measuring approximately 5 x 3.8 cm. Further evaluation is recommended with CT of the chest and pelvis with IV contrast versus PET-CT. There are calcified right hilar nodes noted. There is a 6 mm subpleural calcified granuloma noted in the right lower lobe. There are no pleural effusions. Several borderline enlarge mediastinal nodes are present. The right hilar adenopathy is suspected. Heart is enlarged. There is pericardial effusion noted. Great vessels are within normal limits. The visualized portions of the liver are of uniform attenuation without mass or defect. There is no intra or extrahepatic biliary ductal dilatation. The spleen is unremarkable. The visualized pancreas is of normal contour and attenuation characteristics. There is no evidence of adrenal mass. The visualized portions of the kidneys present no abnormalities. Multiple calcified splenic granulomas are present 15 mm right renal cyst is seen status post cholecystectomy. The bony structures are free of lytic or blastic lesions. IMPRESSION: 1. Several rounded densities in the right and left lung as discussed above. Malignancy is not excluded. Several subtle nodules in the lingula. 2. Several borderline enlarge mediastinal nodes are present. The right hilar adenopathy is suspected. 3. Pericardial effusion. Cardiomegaly. 4. Additional findings as discussed above. Assessment/Plan 1. Aspiration pneumonia- patient has been noncompliant with his pureed diet. Patient also has Parkinson's which certainly contributes to his aspiration. We' ll continue antibiotics. Speech eval. Of no the patient does have a CAT scan of the chest findings with areas of consolidation in the right middle lobe. Spoke with Dr. Mccall; will treat the patient for aspiration pneumonia, and the patient will need to follow-up with pulmonary in his primary care physician for repeat imaging in 1 month to ensure resolution prior to obtaining lung biopsy. 2. 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 The patient will be seen by ENT. 3. ? Orthopnea- history of a small pericardial effusion. Echocardiogram pending. 4. Parkinson's disease- on Sinemet. States that the patient's movements has been well controlled and has baseline. 5. Hyperlipidemia- on statin DVT prophy: Lovenox PT on board. VS,Fishbone, I+O VS, Fishbone, I+O Laboratory Tests 06/08/16 17:12 Calcium Level 8.4 L, Red Blood Count 4.34, Mean Corpuscular Volume 93.6, Mean Corpuscular Hemoglobin 30.6, Mean Corpuscular Hemoglobin Concent 32.6, Red Cell Distribution Width 13.3, Neutrophils (%) (Auto) 73.3 H, Lymphocytes (%) (Auto) 16.4 L, Monocytes (%) (Auto) 6.1 H, Eosinophils (%) (Auto) 0.6, Basophils (%) ( Auto) 0.3, Neutrophils # (Auto) 6.5, Lymphocytes # (Auto) 1.5, Monocytes # (Auto ) 0.5, Eosinophils # (Auto) 0.0, Basophils # (Auto) 0.0 06/09/16 05:40 Calcium Level 8.7 L, Red Blood Count 4.24 L, Mean Corpuscular Volume 94.9, Mean Corpuscular Hemoglobin 31.6, Mean Corpuscular Hemoglobin Concent 33.3, Red Cell Distribution Width 13.5 Vital Signs Date Time Temp Pulse Resp B/P Pulse Ox O2 Delivery O2 Flow Rate FiO2 06/09/16 12:20 96.6 74 20 115/60 96 Room Air I&O- Last 24 Hours up to 6 AM 3/9/17 05:59 Intake Total 0 ml Output Total 0 ml Balance 0 ml CHRISTOPHER MILLS MD Jun 09, 2016 13:59
[2016-06-09] MEDS: diazePAM 2 MG TAB PO PRN (20:29)
[2016-06-09 22:00] VITALS: BP 123/60
[2016-06-09] MEDS: PIPERACILLIN/TAZOBACTAM SOD 3.375 GM in D5W MINI-BAG PLUS 50 ML IV SCH (23:57)
[2016-06-10] MEDS: PIPERACILLIN/TAZOBACTAM SOD 3.375 GM in D5W MINI-BAG PLUS 50 ML IV SCH ×4 (04:49→22:28)
[2016-06-10] MEDS: SLF 3 ML SYR IV SCH ×3 (04:50→20:50)
[2016-06-10 06:05] VITALS: BP 134/71
--- NOTE | 2016-06-10 06:17 | ECHO ---
DATE OF PROCEDURE: 06/09/2016 REFERRING PHYSICIAN: Dr. Ирина Browning. INDICATION: Pericardial effusion. DESCRIPTION: This is a two-dimensional echocardiogram only. This was a moderately technically difficulty echocardiogram. CONCLUSIONS: 1. Tiny pericardial effusion without diastolic chamber collapse. Pericardial effusion measured 3 mm over the conus portion of the right ventricle. 2. Normal LV systolic function. LVEF 70% by visual estimate. No apparent regional wall motion abnormalities. 3. Moderately technically difficult echocardiogram. 4. Normal right ventricle size and systolic function.
[2016-06-10 06:46] LABS: MEAN CORPUSCULAR HEMOGLOBIN 31.4 pg (27.0-33.0); MEAN CORPUSCULAR HGB CONC 33.5 g/dl (32.0-36.5); MEAN CORPUSCULAR VOLUME 93.9 fl (80.0-96.0); RED CELL DISTRIBUTION WIDTH 13.4 % (11.5-14.5); WHITE BLOOD COUNT 8.9 K/mm3 (4.0-10.0)
[2016-06-10 06:58] LABS: ANION GAP 11 MEQ/L (8-16); BLOOD UREA NITROGEN 13 MG/DL (7-18); CALCIUM LEVEL 8.8 MG/DL (8.8-10.2); CARBON DIOXIDE LEVEL 27 MEQ/L (21-32); CHLORIDE LEVEL 100 MEQ/L (98-107); CREATININE FOR GFR 0.85 MG/DL (0.70-1.30); GLOMERULAR FILTRATION RATE > 60.0 (>35); GLUCOSE, FASTING 102 MG/DL (83-110); POTASSIUM SERUM 3.9 MEQ/L (3.5-5.1); SODIUM LEVEL 138 MEQ/L (136-145)
[2016-06-10] MEDS ORDERED: VARIBAR PUDDING 40% w/v 230ML TUBE As Ordered ONE (07:40)
[2016-06-10] MEDS ORDERED: E-Z PAQUE 60% w/v SUSP 355ML BOTTLE As Ordered ONE (07:40)
[2016-06-10] MEDS ORDERED: VARIBAR NECTAR 40% w/v 240ML SUSP BTL As Ordered ONE (07:40)
[2016-06-10] MEDS ORDERED: INFLUENZA VIRUS VACCINE HIGH DOSE 0.5 ML SYRINGE (90662) IM SCH (09:00)
[2016-06-10] MEDS: ENOXAPARIN 40 MG/0.4 ML SYRINGE (J1650) SC SCH (09:28)
[2016-06-10] MEDS: SINEMET 25-100 MG TAB PO SCH ×3 (09:28→20:49)
--- NOTE | 2016-06-10 10:09 | REP ---
Modified barium swallow: CINE fluoroscopy exam: History: Difficulty swallowing. 1 minute 8 seconds of fluoroscopy time is utilized. One fluoroscopic spot film and two last minute hold fluoroscopic spot images are obtained. Findings: There is some degenerative disc disease in the cervical spine. The larynx elevates normally. There is somewhat patulous repetitive laryngeal penetration and several episodes of mild tracheal aspiration were observed with ingestion of liquid barium. There is lack of complete clearing of the hypopharynx as well. Impression: Laryngeal penetration and tracheal aspiration observed. Signed by Jordan Montgomery MD 06/10/2016 10:45 A
[2016-06-10 14:00] VITALS: BP 127/68
--- NOTE | 2016-06-10 14:26 | IPNPDOC ---
Text Note Date of Service The patient was seen on 06/10/16. NOTE Subjective: The patient states he's feeling better today. States his SOB has improved. Objective: Vitals: (see below) General: No acute distress, laying comfortably in bed. HEENT: Moist mucous membranes. Neck: No JVD or lymphadenopathy Cardiac: RRR, No murmurs Pulm: Diminished breath sounds coarse crackles at the bases right greater than left. No wheezing, rhonchi Abd: NT/ND + BS Ext: No edema or cyanosis. Right upper extremity resting tremor. Labs (see below) Images: CT Chest 06/08/16 COMMENTS: There is a rounded density noted in the lingula measuring approximately 3 x 2.1 cm. There is a mass like consolidation noted in the right middle lobe measuring 5.5 x 6.5 cm although this could represent typical pneumonia, malignancy is suspected. There are several subtle nodules noted within the lingula largest of which measures 15 mm. There is a rounded consolidation also noted in the superior segment of the right lower lobe medially measuring approximately 5 x 3.8 cm. Further evaluation is recommended with CT of the chest and pelvis with IV contrast versus PET-CT. There are calcified right hilar nodes noted. There is a 6 mm subpleural calcified granuloma noted in the right lower lobe. There are no pleural effusions. Several borderline enlarge mediastinal nodes are present. The right hilar adenopathy is suspected. Heart is enlarged. There is pericardial effusion noted. Great vessels are within normal limits. The visualized portions of the liver are of uniform attenuation without mass or defect. There is no intra or extrahepatic biliary ductal dilatation. The spleen is unremarkable. The visualized pancreas is of normal contour and attenuation characteristics. There is no evidence of adrenal mass. The visualized portions of the kidneys present no abnormalities. Multiple calcified splenic granulomas are present 15 mm right renal cyst is seen status post cholecystectomy. The bony structures are free of lytic or blastic lesions. IMPRESSION: 1. Several rounded densities in the right and left lung as discussed above. Malignancy is not excluded. Several subtle nodules in the lingula. 2. Several borderline enlarge mediastinal nodes are present. The right hilar adenopathy is suspected. 3. Pericardial effusion. Cardiomegaly. 4. Additional findings as discussed above. Echo 06/09/16 CONCLUSIONS: 1. Tiny pericardial effusion without diastolic chamber collapse. Pericardial effusion measured 3 mm over the conus portion of the right ventricle. 2. Normal LV systolic function. LVEF 70% by visual estimate. No apparent regional wall motion abnormalities. 3. Moderately technically difficult echocardiogram. 4. Normal right ventricle size and systolic function. Assessment/Plan 1. Aspiration pneumonia- patient has been noncompliant with his pureed diet. Patient also has Parkinson's which certainly contributes to his aspiration. We' ll continue antibiotics. Speech eval. Of note the patient does have a CAT scan of the chest findings with areas of consolidation in the right middle lobe. We' ll treat the patient for aspiration pneumonia, and the patient will need to follow-up with pulmonary and his primary care physician for repeat imaging in 1 month to ensure resolution prior to obtaining lung biopsy. 2. 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 The patient will be seen by ENT. 3. ? Orthopnea- history of a small pericardial effusion. Echocardiogram pending. 4. Parkinson's disease- on Sinemet. States that the patient's movements has been well controlled and has baseline. 5. Hyperlipidemia- on statin DVT prophy: Lovenox Plan to d/c once cleared by PT. Yinka BARNES, I+O Yinka BARNES, I+O Laboratory Tests 06/10/16 06:26 Calcium Level 8.8, Red Blood Count 4.12 L, Mean Corpuscular Volume 93.9, Mean Corpuscular Hemoglobin 31.4, Mean Corpuscular Hemoglobin Concent 33.5, Red Cell Distribution Width 13.4 Vital Signs Date Time Temp Pulse Resp B/P Pulse Ox O2 Delivery O2 Flow Rate FiO2 06/10/16 06:05 97.0 76 17 134/71 98 Room Air I&O- Last 24 Hours up to 6 AM 06/10/16 06:00 Intake Total 120 ml Output Total 950 ml Balance -830 ml CHRISTOPHER MILLS MD Jun 10, 2016 14:26
[2016-06-10] MEDS: SIMVASTATIN 20 MG TAB PO SCH (20:49)
[2016-06-10] MEDS: diazePAM 2 MG TAB PO PRN (20:50)
[2016-06-10 22:00] VITALS: BP 151/61
[2016-06-11] MEDS: PIPERACILLIN/TAZOBACTAM SOD 3.375 GM in D5W MINI-BAG PLUS 50 ML IV SCH ×4 (05:23→22:13)
[2016-06-11] MEDS: SLF 3 ML SYR IV SCH ×3 (05:23→22:13)
[2016-06-11 06:00] VITALS: BP 136/66
[2016-06-11 06:34] LABS: MEAN CORPUSCULAR HEMOGLOBIN 31.3 pg (27.0-33.0); MEAN CORPUSCULAR HGB CONC 33.3 g/dl (32.0-36.5); MEAN CORPUSCULAR VOLUME 94.1 fl (80.0-96.0); RED CELL DISTRIBUTION WIDTH 13.2 % (11.5-14.5); WHITE BLOOD COUNT 8.7 K/mm3 (4.0-10.0)
[2016-06-11 06:47] LABS: ANION GAP 8 MEQ/L (8-16); BLOOD UREA NITROGEN 13 MG/DL (7-18); CALCIUM LEVEL 8.6 MG/DL (8.8-10.2); CARBON DIOXIDE LEVEL 29 MEQ/L (21-32); CHLORIDE LEVEL 99 MEQ/L (98-107); CREATININE FOR GFR 0.94 MG/DL (0.70-1.30); GLOMERULAR FILTRATION RATE > 60.0 (>35); GLUCOSE, FASTING 120 MG/DL (83-110); POTASSIUM SERUM 3.9 MEQ/L (3.5-5.1); SODIUM LEVEL 136 MEQ/L (136-145)
[2016-06-11 09:00] VITALS: BP 133/62
[2016-06-11] MEDS: SINEMET 25-100 MG TAB PO SCH ×3 (09:21→20:53)
[2016-06-11] MEDS: ENOXAPARIN 40 MG/0.4 ML SYRINGE (J1650) SC SCH (09:22)
--- NOTE | 2016-06-11 12:29 | IPNPDOC ---
Text Note Date of Service The patient was seen on 06/11/16. NOTE Subjective: The patient states he feels well. Tolerating Pureed diet. Objective: Vitals: (see below) General: No acute distress, laying comfortably in bed. HEENT: Moist mucous membranes. Neck: No JVD or lymphadenopathy Cardiac: RRR, No murmurs Pulm: Diminished breath sounds coarse crackles at the bases right greater than left. No wheezing, rhonchi Abd: NT/ND + BS Ext: No edema or cyanosis. Right upper extremity resting tremor. Labs (see below) Images: CT Chest 06/08/16 COMMENTS: There is a rounded density noted in the lingula measuring approximately 3 x 2.1 cm. There is a mass like consolidation noted in the right middle lobe measuring 5.5 x 6.5 cm although this could represent typical pneumonia, malignancy is suspected. There are several subtle nodules noted within the lingula largest of which measures 15 mm. There is a rounded consolidation also noted in the superior segment of the right lower lobe medially measuring approximately 5 x 3.8 cm. Further evaluation is recommended with CT of the chest and pelvis with IV contrast versus PET-CT. There are calcified right hilar nodes noted. There is a 6 mm subpleural calcified granuloma noted in the right lower lobe. There are no pleural effusions. Several borderline enlarge mediastinal nodes are present. The right hilar adenopathy is suspected. Heart is enlarged. There is pericardial effusion noted. Great vessels are within normal limits. The visualized portions of the liver are of uniform attenuation without mass or defect. There is no intra or extrahepatic biliary ductal dilatation. The spleen is unremarkable. The visualized pancreas is of normal contour and attenuation characteristics. There is no evidence of adrenal mass. The visualized portions of the kidneys present no abnormalities. Multiple calcified splenic granulomas are present 15 mm right renal cyst is seen status post cholecystectomy. The bony structures are free of lytic or blastic lesions. IMPRESSION: 1. Several rounded densities in the right and left lung as discussed above. Malignancy is not excluded. Several subtle nodules in the lingula. 2. Several borderline enlarge mediastinal nodes are present. The right hilar adenopathy is suspected. 3. Pericardial effusion. Cardiomegaly. 4. Additional findings as discussed above. Echo 06/09/16 CONCLUSIONS: 1. Tiny pericardial effusion without diastolic chamber collapse. Pericardial effusion measured 3 mm over the conus portion of the right ventricle. 2. Normal LV systolic function. LVEF 70% by visual estimate. No apparent regional wall motion abnormalities. 3. Moderately technically difficult echocardiogram. 4. Normal right ventricle size and systolic function. Assessment/Plan 1. Aspiration pneumonia- patient has been noncompliant with his pureed diet. Patient also has Parkinson's which certainly contributes to his aspiration. We' ll continue antibiotics. Speech eval. Of note the patient does have a CAT scan of the chest findings with areas of consolidation in the right middle lobe. We' ll treat the patient for aspiration pneumonia, and the patient will need to follow-up with pulmonary and his primary care physician for repeat imaging in 1 month to ensure resolution prior to obtaining lung biopsy. 2. 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 The patient will be seen by ENT. 3. ? Orthopnea- history of a small pericardial effusion. Echocardiogram pending. 4. Parkinson's disease- on Sinemet. States that the patient's movements has been well controlled and has baseline. 5. Hyperlipidemia- on statin DVT prophy: Lovenox Plan to d/c once cleared by PT. I have updated daughter and at bedside. VS,Fishbone, I+O VS, Fishbone, I+O Laboratory Tests 06/11/16 06:00 Calcium Level 8.6 L, Red Blood Count 4.21 L, Mean Corpuscular Volume 94.1, Mean Corpuscular Hemoglobin 31.3, Mean Corpuscular Hemoglobin Concent 33.3, Red Cell Distribution Width 13.2 Vital Signs Date Time Temp Pulse Resp B/P Pulse Ox O2 Delivery O2 Flow Rate FiO2 06/11/16 10:00 Room Air 06/11/16 06:00 97.9 75 18 136/66 98 I&O- Last 24 Hours up to 6 AM 06/11/16 06:00 Intake Total 660 ml Output Total 725 ml Balance -65 ml CHRISTOPHER MILLS MD Jun 11, 2016 12:29
[2016-06-11 14:00] VITALS: BP 137/63
[2016-06-11] MEDS: SIMVASTATIN 20 MG TAB PO SCH (20:53)
[2016-06-11 22:00] VITALS: BP 133/81
[2016-06-11] MEDS: diazePAM 2 MG TAB PO PRN (22:13)
[2016-06-12] MEDS: PIPERACILLIN/TAZOBACTAM SOD 3.375 GM in D5W MINI-BAG PLUS 50 ML IV SCH ×2 (04:11→11:22)
[2016-06-12] MEDS: SLF 3 ML SYR IV SCH ×2 (04:12→13:05)
[2016-06-12] MEDS ORDERED: ACETAMINOPHEN TAB 650MG DOSE (2X325MG) PO PRN (04:15)
[2016-06-12 06:00] VITALS: BP 116/63
[2016-06-12 06:20] LABS: MEAN CORPUSCULAR HEMOGLOBIN 31.1 pg (27.0-33.0); MEAN CORPUSCULAR HGB CONC 33.4 g/dl (32.0-36.5); MEAN CORPUSCULAR VOLUME 93.2 fl (80.0-96.0); RED CELL DISTRIBUTION WIDTH 13.2 % (11.5-14.5); WHITE BLOOD COUNT 6.4 K/mm3 (4.0-10.0)
[2016-06-12 06:50] LABS: ANION GAP 9 MEQ/L (8-16); BLOOD UREA NITROGEN 13 MG/DL (7-18); CALCIUM LEVEL 8.5 MG/DL (8.8-10.2); CARBON DIOXIDE LEVEL 26 MEQ/L (21-32); CHLORIDE LEVEL 100 MEQ/L (98-107); CREATININE FOR GFR 1.03 MG/DL (0.70-1.30); GLOMERULAR FILTRATION RATE > 60.0 (>35); GLUCOSE, FASTING 107 MG/DL (83-110); POTASSIUM SERUM 3.5 MEQ/L (3.5-5.1); SODIUM LEVEL 135 MEQ/L (136-145)
[2016-06-12] MEDS: ENOXAPARIN 40 MG/0.4 ML SYRINGE (J1650) SC SCH (09:10)
[2016-06-12] MEDS: SINEMET 25-100 MG TAB PO SCH (09:10)
[2016-06-12] MEDS ORDERED: AUGMSUS PO (12:24)
--- NOTE | 2016-06-12 16:10 | DS.PDOC ---
Discharge Summary General Date of Admission Jun 08, 2016 at 21:07 Date of Discharge Jun 12, 2016 at 14:14 Attending Physician: CHRISTOPHER MILLS MD Specialist/Consultants Involve: GAMALIEL RUIZ MD Discharge Summary PROCEDURES PERFORMED DURING STAY: None. ADMITTING/DISCHARGE DIAGNOSES: 1. Aspiration pneumonia secondary to noncompliance with pured diet 2. Parkinson's disease, stable 3. 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 Hyperlipidemia COMPLICATIONS/CHIEF COMPLAINT: Aspiration Into Airway. HISTORY OF PRESENT ILLNESS/HOSPITAL COURSE: . This is a 85-year-old male past medical history Parkinson's disease who presents complaining of sensation of mass in his throat as well as dysphagia. Patient was noted to be noncompliant with the pured that was recommended. The patient also has a history of Parkinson's however the H&P notes that than his neurologist does not believe this is related to his Parkinson's. The patient was also noted to have a pharyngocele, which was evaluated by Dr. Ruiz. I have spoken to Dr. Ruiz who states that he has evaluated the patient and does not believe that this has caused as aspiration or has interfered with his by mouth intake. The patient was noted to have aspiration pneumonia. He does have a consolidation on the right lung field. Have discussed these findings with Dr. Mccall who has reviewed the CAT scan imaging and recommended that we treat the patient for aspiration pneumonia and have him follow-up with Dr. Swann in the office for a repeat CAT scan in one month prior to entertaining a lung biopsy to rule out malignancy. The patient was continued on antibiotics and this plan was discussed with the patient and the who verbalized understanding and will be following up closely with their primary care physician as well as qa software tester. The patient is hemodynamically stable, tolerated the pureed diet, verbalized understanding he needs to be compliant with his diet, and will be discharged home today as he did well with physical therapy. DISCHARGE MEDICATIONS: Please see below. ALLERGIES: Please see below. PHYSICAL EXAMINATION ON DISCHARGE: Vitals: (see below) General: No acute distress, laying comfortably in bed. HEENT: Moist mucous membranes. Neck: No JVD or lymphadenopathy Cardiac: RRR, No murmurs Pulm: Diminished breath sounds coarse crackles at the bases right greater than left. No wheezing, rhonchi Abd: NT/ND + BS Ext: No edema or cyanosis. Right upper extremity resting tremor. LABORATORY DATA: Please see below. IMAGING: CT Chest 06/08/16 COMMENTS: There is a rounded density noted in the lingula measuring approximately 3 x 2.1 cm. There is a mass like consolidation noted in the right middle lobe measuring 5.5 x 6.5 cm although this could represent typical pneumonia, malignancy is suspected. There are several subtle nodules noted within the lingula largest of which measures 15 mm. There is a rounded consolidation also noted in the superior segment of the right lower lobe medially measuring approximately 5 x 3.8 cm. Further evaluation is recommended with CT of the chest and pelvis with IV contrast versus PET-CT. There are calcified right hilar nodes noted. There is a 6 mm subpleural calcified granuloma noted in the right lower lobe. There are no pleural effusions. Several borderline enlarge mediastinal nodes are present. The right hilar adenopathy is suspected. Heart is enlarged. There is pericardial effusion noted. Great vessels are within normal limits. The visualized portions of the liver are of uniform attenuation without mass or defect. There is no intra or extrahepatic biliary ductal dilatation. The spleen is unremarkable. The visualized pancreas is of normal contour and attenuation characteristics. There is no evidence of adrenal mass. The visualized portions of the kidneys present no abnormalities. Multiple calcified splenic granulomas are present 15 mm right renal cyst is seen status post cholecystectomy. The bony structures are free of lytic or blastic lesions. IMPRESSION: 1. Several rounded densities in the right and left lung as discussed above. Malignancy is not excluded. Several subtle nodules in the lingula. 2. Several borderline enlarge mediastinal nodes are present. The right hilar adenopathy is suspected. 3. Pericardial effusion. Cardiomegaly. 4. Additional findings as discussed above. Echo 06/09/16 CONCLUSIONS: 1. Tiny pericardial effusion without diastolic chamber collapse. Pericardial effusion measured 3 mm over the conus portion of the right ventricle. 2. Normal LV systolic function. LVEF 70% by visual estimate. No apparent regional wall motion abnormalities. 3. Moderately technically difficult echocardiogram. 4. Normal right ventricle size and systolic function. PROGNOSIS: Fair ACTIVITY: As tolerated. DIET: Pureed diet, honey thickened DISCHARGE PLAN/DISPOSITION: 01 Home, Self-Care. DISCHARGE INSTRUCTIONS: 1. F/u with PCP in 1 week. Follow-up with ENT in 2 weeks. Follow-up with pulmonology in one month, so that you may have a repeat CT of the chest in one month, however reviewed by pulmonology to determine if a biopsy of this right lung consolidation is indeed malignancy. I have discussed these instructions with the patient as well as his who verbalized understanding. DISCHARGE CONDITION: Stable. TIME SPENT ON DISCHARGE: Greater than 30 minutes. Vital Signs/I&Os Vital Signs Date Time Temp Pulse Resp B/P Pulse Ox O2 Delivery O2 Flow Rate FiO2 06/12/16 09:00 Room Air 06/12/16 06:00 96.7 65 19 116/63 98 I&O- Last 24 Hours up to 6 AM 06/12/16 06:00 Intake Total 1400 ml Output Total 450 ml Balance 950 ml Laboratory Data Labs 24H Laboratory Tests 2 06/12/16 05:51: Anion Gap 9, Blood Urea Nitrogen 13, Creatinine 1.03, Sodium Level 135L, Potassium Level 3.5, Chloride Level 100, Carbon Dioxide Level 26, Calcium Level 8.5L, Glomerular Filtration Rate > 60.0 CBC/BMP Laboratory Tests 06/12/16 05:51 Calcium Level 8.5 L, Red Blood Count 3.97 L, Mean Corpuscular Volume 93.2, Mean Corpuscular Hemoglobin 31.1, Mean Corpuscular Hemoglobin Concent 33.4, Red Cell Distribution Width 13.2 Discharge Medications Scheduled Amoxicillin/Clavulanate Potas (Augmentin Es-600 600-42.9 mg/5Ml) 1 Dania Dania 600 MG PO BID Carbidopa/Levodopa (Carbidopa/Levodopa 25-100 mg) 1 Tab Tab 0.5 TAB PO TID ( Reported) Scheduled PRN Benzonatate (Benzonatate) 100 Mg Cap 200 MG PO TID PRN PRN COUGH (Reported) Allergies Coded Allergies: No Known Allergies (Unverified , 04/16/13) CHRISTOPHER MILLS MD Jun 12, 2016 16:10
--- NOTE | 2016-06-15 13:13 | HPE ---
DATE OF ADMISSION: 06/08/2016 Hal is an 85-year-old gentleman who presents with a history of aspiration pneumonia. The patient has Parkinson disease. The patient developed pneumonia. He has some problems with swallowing, which he has had over the last number of months. He has no sore throat or difficulty swallowing. He has no nasal obstruction or nasal discharge. This does affect his voice. He has lost weight because of this. EXAMINATION: On examination, it shows he is relatively alert. Examination of the nose shows the nasal septum to be deviated towards the right side. Examination of the mouth was normal. I inserted a flexible nasopharyngoscope and examined the nose, nasopharynx, oropharynx, , and larynx. There was no evidence of aspiration during the procedure. He did have normal vocal cord movement, both true and false cords. There was no evidence of any lumps or tumors or such. IMPRESSION: I think the patient has aspiration pneumonia or likely related to a neuromuscular disorder from his Parkinson disease. PLAN: I suggested that he have a trial of speech therapy. If he is unable to eliminate the aspiration, then he would need a feeding tube.
== END 2016-06-12 14:14 | disposition home health service (06) | DRG 178 ==
LOC: M ED 15:49 → M ED INP 21:07 → M PCU 23:45 → M MSPAV 06-09 17:40
PROVIDERS: ADMIT Internal Medicine; ATTEND Internal Medicine
DX: J69.0 Pneumonitis due to inhalation of food and vomit (principal); I31.3 Pericardial effusion (noninflammatory); R13.10 Dysphagia, unspecified; I10 Essential (primary) hypertension; E78.5 Hyperlipidemia, unspecified; G47.00 Insomnia, unspecified; G20 Parkinson's disease; R06.01 Orthopnea; R91.8 Other nonspecific abnormal finding of lung field; H91.93 Unspecified hearing loss, bilateral; K22.5 Diverticulum of esophagus, acquired; Z91.11 Patient's noncompliance with dietary regimen; Z85.46 Personal history of malignant neoplasm of prostate; Z79.899 Other long term (current) drug therapy; Z86.011 Personal history of benign neoplasm of the brain

== ENCOUNTER → 2016-07-06 | Outpatient (REF) | payer MEDICARE ==
[~2016-07-06] MED LIST changes: +AUGMSUS PO; +BENZ100C5 PO
== END ==
LOC: M SFHCCLAY 16:18
PROVIDERS: ATTEND Family Medicine
DX: R35.0 Frequency of micturition (principal)
CPT/HCPCS: 81002; 87086; G0463

== ENCOUNTER → 2016-08-09 | Outpatient (REF) | payer MEDICARE | LOC: M SFHCCLAY 10:33 | PROVIDERS: ATTEND Family Medicine | DX: R35.0 Frequency of micturition (principal) ==

== ENCOUNTER → 2017-06-27 | Outpatient (REF) | payer MEDICARE ==
[2017-06-27 11:43] LABS: CREATININE FOR GFR 1.05 MG/DL (0.70-1.30); GLOMERULAR FILTRATION RATE > 60.0 (>35)
[2017-06-27 11:43] LABS: BLOOD UREA NITROGEN 23 MG/DL (7-18)
== END ==
LOC: M LABDRAWC 11:06
DX: R56.9 Unspecified convulsions (principal)
CPT/HCPCS: 82565

== ENCOUNTER → 2017-08-07 | Outpatient (REF) | payer MEDICARE ==
[2017-08-07 17:44] LABS: ESTIMATED AVERAGE GLUCOSE 177 MG/DL (60-110); HEMOGLOBIN A1c 7.8 %
[2017-08-07 17:46] LABS: TOTAL T3 107.5 NG/DL (60.0-181.0)
[2017-08-07 18:07] LABS: ALBUMIN 3.6 GM/DL (3.2-5.2); ALBUMIN/GLOBULIN RATIO 1.03 (1.00-1.93); ALKALINE PHOSPHATASE 83 U/L (45-117); ALT/SGPT 11 U/L (12-78); ANION GAP 7 MEQ/L (8-16); AST/SGOT 22 U/L (7-37); BILIRUBIN,TOTAL 0.6 MG/DL (0.2-1.0); BLOOD UREA NITROGEN 21 MG/DL (7-18); CALCIUM LEVEL 9.1 MG/DL (8.8-10.2); CARBON DIOXIDE LEVEL 30 MEQ/L (21-32); CHLORIDE LEVEL 102 MEQ/L (98-107); CHOLESTEROL LEVEL 236 MG/DL (<200); CHOLESTEROL RISK RATIO 7.866 (<5); CREATININE FOR GFR 1.04 MG/DL (0.70-1.30); GLOMERULAR FILTRATION RATE > 60.0 (>35); GLUCOSE, FASTING 184 MG/DL (70-100); HDL CHOLESTEROL 30 MG/DL (>40); LDL CHOLESTEROL 131.6 MG/DL (<100); NON-HDL-C 206 MG/DL; POTASSIUM SERUM 4.2 MEQ/L (3.5-5.1); PROSTATIC SPECIFIC AG MONITOR < 0.01 NG/ML (< 4.0); SODIUM LEVEL 139 MEQ/L (136-145); TOTAL PROTEIN 7.1 GM/DL (6.4-8.2); TRIGLYCERIDES LEVEL 372 MG/DL (<150)
== END ==
LOC: M SFHCCLAY 13:33
DX: R63.5 Abnormal weight gain (principal); E04.2 Nontoxic multinodular goiter; I10 Essential (primary) hypertension; R73.01 Impaired fasting glucose; E78.5 Hyperlipidemia, unspecified; Z85.46 Personal history of malignant neoplasm of prostate
CPT/HCPCS: 84443

== ENCOUNTER → 2019-03-26 | Outpatient (REF) | payer MEDICARE ==
[~2019-03-26] MED LIST changes: -AUGM875T27 PO; +AUGM875T28 PO; +BENZ-18 PO; -BENZ100C5 PO; -CARB25TA PO; +CARB25TA9 PO; -LEVA750T PO; +LEVA750T7 PO; -SIMV20TA2 PO; +SIMV20TA22 PO
[2019-03-26 12:46] LABS: BASO % 0.5 % (0.0-1.0); EOS # 0.2 10^3/uL (0.0-0.5); EOS % 2.8 % (0.0-3.0); HEMATOCRIT 44.6 % (42.0-52.0); HEMOGLOBIN 14.7 g/dl (13.5-17.5); LYMPH # 2.7 10^3/uL (1.5-5.0); LYMPH % 36.7 % (24.0-44.0); MEAN CORPUSCULAR HEMOGLOBIN 31.7 pg (27.0-33.0); MEAN CORPUSCULAR VOLUME 96.3 fl (80.0-96.0); MONO # 0.5 10^3/uL (0.0-0.8); MONO % 7.1 % (0.0-5.0); NEUTROPHILS # 3.9 10^3/uL (1.5-8.5); NEUTROPHILS % 52.2 % (36.0-66.0); PLATELET COUNT, AUTOMATED 326 10^3/uL (150-450); RED BLOOD COUNT 4.63 10^6/uL (4.30-6.10); WHITE BLOOD COUNT 7.5 10^3/uL (4.0-10.0)
[2019-03-26 12:49] LABS: ALBUMIN 3.3 GM/DL (3.2-5.2); ALT/SGPT 10 U/L (12-78); BILIRUBIN,TOTAL 0.8 MG/DL (0.2-1.0); BLOOD UREA NITROGEN 14 MG/DL (7-18); CALCIUM LEVEL 9.2 MG/DL (8.8-10.2); CARBON DIOXIDE LEVEL 30 MEQ/L (21-32); CHLORIDE LEVEL 100 MEQ/L (98-107); CREATININE FOR GFR 1.15 MG/DL (0.70-1.30); GLOMERULAR FILTRATION RATE > 60.0 (>35); GLUCOSE, FASTING 191 MG/DL (70-100); POTASSIUM SERUM 4.2 MEQ/L (3.5-5.1); SODIUM LEVEL 138 MEQ/L (136-145); TOTAL PROTEIN 6.9 GM/DL (6.4-8.2)
[2019-03-26 13:05] LABS: HEMOGLOBIN A1c 8.3 %
== END ==
LOC: M SFHCCLAY 08:55
PROVIDERS: ATTEND Family Medicine
DX: E11.9 Type 2 diabetes mellitus without complications (principal); I10 Essential (primary) hypertension